=== PATIENT | male | born 1965 ===

== ENCOUNTER 2017-11-13 07:10 | Emergency (ER) | payer OTHER ==
--- OUTSIDE RECORDS SUMMARY | 2017-11-13 07:16 | XMS REPORT ---
:1965 External Reference #:[id number] Author Organization [facility] Address [address] [address] Phone [phone] Care Team Providers Name Role Phone Marcia Thornton RN MS INSURANCE ADMINISTRATIVE ASSISTANT Care Team Information Manager Product Support Unavailable Payers Type Date Identification Numbers Payment Provider Subscriber Commercial Effective: Policy Number: [id number] Wil Brandon Bassam 2014 PayID: [id number] 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, predominantly INSURANCE ADMINISTRATIVE ASSISTANT inattentive type Onset: 02/02/2011 Mixed hyperlipidemia Marcia Thornton RN MS Active INSURANCE ADMINISTRATIVE ASSISTANT Onset: 02/02/2011 Impaired fasting glycaemia Marcia Thornton RN MS Active INSURANCE ADMINISTRATIVE ASSISTANT Family History Date Family Member(s) Problem(s) Comments Father 66 Father Sleep Apnea Father COPD Father Hypercholesterolemia Father Depression doing well on zoloft and wellbutrin Mother 63 Mother Hypertension Mother Hypercholesterolemia First Brother esophageal varices First Brother barretts esophagitis Social History Type Date Description Comments Marital Status Significant Other Lives With Female Partner Smoke-Free Home is not smoke-free 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 Cigarette Use current cigarette smoker 1 pack per week ETOH Use Occasionally consumes beer Daily Caffeine Does Not Consume Caffeine Allergies, Adverse Reactions, Alerts Date Description Reaction Status Severity Comments 08/15/2006 NKDA active Medications Medication Date Status Form Strength Qnty SIG Indications Ordering Provider Bipap 11/02 Active G47.30 Marcia Rubin RN MS HEIDI Sildenafil 11/02 Active Tablets 100mg 6tabs one half F52.21 to one tab Marcia Rubin RN MS INSURANCE ADMINISTRATIVE ASSISTANT Glimepiride 11/02 Active Tablets 4mg 30tabs one tab E11.65 [place] with Marcia breakfast Caryn RN MS daily INSURANCE ADMINISTRATIVE ASSISTANT Citalopram 11/17 Active Tablets 20mg 30tabs Take F33.0 Norberto bromid One-Half Marcia Tablet By Caryn RN MS Mouth INSURANCE ADMINISTRATIVE ASSISTANT Daily For 4 Days Then Increase To One Tablet Once Daily Freestyle System 07/07 Active Kit 1units use as E11.65 Norberto directed Marcia daily to JITENDRA Rubin MS monitor INSURANCE ADMINISTRATIVE ASSISTANT blood sugar Freestyle Test 04/04 Active Strips 100units To Use E11.65 Norberto With Once Marcia Daily Caryn RN MS Glucose INSURANCE ADMINISTRATIVE ASSISTANT Monitoring DX E11. Lancets 03/31 Active Misc 100units Use as E11.65 Norberto Directed Marcia Safety For Once Caryn RN MS Daily INSURANCE ADMINISTRATIVE ASSISTANT Glucose Monitoring Atorvastatin 03/31 Active Tablets 10mg 90tabs 1 by mouth E78.2 [place] every day Marcia Rubin RN MS INSURANCE ADMINISTRATIVE ASSISTANT Omeprazole 03/31 Active Capsules 20mg 90caps take one K21.9 DR capsule by Marcia mouth JITENDRA Rubin MS every day INSURANCE ADMINISTRATIVE ASSISTANT Clotrimazole 11/25 Active Cream 1% 28.350gm apply B37.42 Ledy Anti-Fungal twice Berenice daily to MD Tania affected area Lisinopril 08/20 Active Tablets 10mg 90tabs 1 by mouth I10 every day Marcia Rubin RN MS INSURANCE ADMINISTRATIVE ASSISTANT Work Note 10/19 Hx patient Tessie.Kassandra Villafana was seen Berenice - in our MD Tania 10/22 today. Out of work 10/19 thru 10/23/2017 Azithromycin 10/19 Hx Tablets 500mg 3tabs 1 by mouth Jodi Villafana every day Berenice - MD Tania 10/26 Proair HFA 10/19 Hx Aerosol 108(90Bas 8.500gm 2 puffs J15.Kassandra Villafana e) every 6 Berenice - mcg/Act hours as MD Tania 10/19 needed wheezing/s ob Hydrocodone-Linh 10/19 Hx Syrup 5-1.5mg/5 100ml 5 J15.9 [facility], tropine ML milliliter Berenice - s every 6 MD Tania 10/24 hours needed for severe cough. avoid driving while on this medication . Ventolin HFA 10/19 Hx Aerosol 108(90Bas 1units 2 puffs J15.9 [place], e) every 4 Berenice - mcg/Act hours as MD Tania 10/26 needed Escitalopram 08/03 Hx Tablets 20mg 90tabs 1 by mouth F33.0 [place], every day Marcia Rubin RN MS 08/03 Atomoxetine HCL 08/03 Hx Capsules 40mg 30caps one tab F90.0 once daily Marcia - in am. Caryn RN MS 11/02 Return To Work 11/23 Hx Norberto, With Marciaraquel Rubin RN MS 04/20 Out Of Work 11/17 Hx for F33.0 [place] medical Marcia - reasons Caryn RN MS 04/20 for one week returning on 11/25 Gabapentin 11/17 Hx Capsules 300mg 60caps Take Two F33.0 Capsules Marcia - By Mouth Caryn RN MS 11/02 At Bedtime as Needed For Sleep Glimepiride 09/08 Hx Tablets 2mg 30tabs Take One E11.65 Tablet By Marcia - Mouth Caryn RN MS 11/02 Every Day At Breakfast Lisinopril 07/07 Hx Tablets 20mg 1 by mouth I10 every day Marcia Rubin RN MS 07/07 Glimepiride 03/31 Hx Tablets 1mg 60tabs take 1 E11.65 Norberto tablet by Marcia - mouth Caryn RN MS 09/08 daily, february increase to 2 tabs/ aim at morning sugar 120-150 Glucose 03/31 Hx for once A E11.65 Norberto, Monitoring day Marcia Orozco - glucosee JITENDRA Rubin MS 07/07 monitoring Accu-Chek 03/31 Hx Strips 100units use qd- as .65 Norberto Smart needed for Marcia - diabetes C, RN MS 04/04 testing dx INSURANCE ADMINISTRATIVE ASSISTANT e11.9, e11.65 Cyclobenzaprine 02/14 Hx Tablets 10mg 90tabs 1 every 726.19 Norberto night at Marcia - bedtime C, RN MS 09/08 and 11/01 tab every 8 hours as needed muscle spasm. Out Of Work For 02/14 Hx 02/14-. 726.19 Norberto Medical Reasons return to [facility] - full duty C, RN MS 08/20 on 02/17. INSURANCE ADMINISTRATIVE ASSISTANT Vicodin 02/14 Hx Tablets 5-300mg 20tabs 1- tab q4 726.19 Norberto hours as Marcia - needed C, RN MS 02/14 pain. Take With Food. Lidocaine 02/14 Hx Patches 5% samples apply 726.19 daily for Marcia - 12 hours C, RN MS 08/20 and remove for 12 hours Hydrocodone 02/14 Hx Tablets 5-300mg 20tabs 1 Tab Q 4 726.19 Emely Thorntonracamron/Aceta HRS prn Marcia minophen - Pain C, RN MS 02/14 INSURANCE ADMINISTRATIVE ASSISTANT Hydrocodone 02/14 Hx 5-325mg 20units 1 tab 726.19 Geovany Thornton Every 4 Marcia Acetaminophen - Hours as C, RN MS 02/14 needed - For severe pain Hydrocodone-Acet 02/14 Hx Tablets 5-325mg 20tabs 1 tab by 726.19 Norberto aminophen mouth Marcia - every 4 C, RN MS 08/20 hours INSURANCE ADMINISTRATIVE ASSISTANT needed pain BP Cuff, 11/14 Hx for weekly I10 Norberto, bp checks Marcia - dx C, RN MS 08/20 hypertensi on/diabete s Omeprazole 05/09 Hx Capsules 40mg 30caps take one K21.[address] capsule by Marcia - mouth C, RN MS 03/31 every day Ibuprofen 02/01 Hx Tablets 600mg 100tabs 1 q6 hrs 719.46 Norberto prn pain Marcia - C, RN MS 08/20 Simvastatin 06/10 Hx Tablets 40mg 90tabs 1 po qd 272.2 Marcia Rubin RN MS 08/10 Simvastatin 02/04 Hx Tablets 20mg 30tabs one tablet Norberto before bed Marcia Rubin RN MS 06/10 Ibuprofen 05/13 Hx Tablets 800mg 90tabs 1 po tid 719.46 Norberto with food Marcia Rubin RN MS 02/01 Drisdol 02/19 Hx Capsules [id number] 8caps 1 tab po q 268.9 weekly for Marcia - 8 weeks JITENDRA Rubin MS 02/02 Metformin HCL 01/12 Hx Tablets 500mg 60tabs 1tab po bid with Marcia - everette Rubin RN MS 01/02 Meloxicam 12/30 Hx Tablets 7.5mg 30tabs take 1 719.66 tablet by Marcia - tommy Rubin RN MS 09/23 every day for pain Ibuprofen 08/26 Hx Tablets 800mg 60tabs 1 po bid 719.46 Norberto Marcia Rubin RN MS 12/30 Adderall XR 01/30 Hx Caps ER 30mg 30caps one every F06.30 [facility] 24HR day february Berenice Marin MD 04/20 F90.0 Wellbutrin XL 08/15/2006 - Hx Tablets 300mg 30tabs qd 296.31 Marcia Thornton 02/19/2009 JITENDRA Rubin MS INSURANCE ADMINISTRATIVE ASSISTANT Immunizations CPT Code Status Date Vaccine Lot # [id number] Given 05/13/2010 Tdap (Adacel) Ages 7 And Above Only [id number] Given 05/08/2003 Immunization Td 7 Yrs Or Older [id number] Refused 08/03/2017 Influenza Vac, 3 Yrs & Older, Quadrivalent, Split, [place] Use [id number] Refused 04/20/2017 Influenza Vac, 3 Yrs & Older, Quadrivalent, Split, Im Use Vital Signs Date Vital Result Comment 11/02/2017 Weight 225.25 lb Heart Rate 91 /min BP Systolic 127 mmHg BP Diastolic 88 mmHg Height 68 inches 5'8" BMI (Body Mass Index) 34.2 kg/m2 10/19/2017 Body Temperature 99.5 F Weight 221.38 lb Heart Rate 108 /min BP Systolic 118 mmHg BP Diastolic 77 mmHg Height 68 inches 5'8" BMI (Body Mass Index) 33.7 kg/m2 08/03/2017 Weight 248.38 lb Heart Rate 104 /min BP Systolic 132 mmHg BP Diastolic 83 mmHg 04/20/2017 Weight 250.00 lb Heart Rate 91 /min BP Systolic 123 mmHg BP Diastolic 80 mmHg 11/17/2016 Weight 243.50 lb Heart Rate 85 /min BP Systolic 120 mmHg BP Diastolic 80 mmHg Height 68 inches 5'8" BMI (Body Mass Index) 37.0 kg/m2 09/08/2016 Weight 250.00 lb Heart Rate 99 /min BP Systolic 143 mmHg BP Diastolic 90 mmHg Height 68 inches 5'8" BMI (Body Mass Index) 38.0 kg/m2 07/07/2016 Weight 244.50 lb Heart Rate 98 /min BP Systolic 134 mmHg BP Diastolic 91 mmHg Height 68 inches 5'8" BMI (Body Mass Index) 37.2 kg/m2 03/31/2016 Weight 247.12 lb Heart Rate 96 /min BP Systolic 133 mmHg BP Diastolic 92 mmHg Height 68 inches 5'8" BMI (Body Mass Index) 37.6 kg/m2 11/25/2015 Body Temperature 98.0 F Weight 243.00 lb Heart Rate 86 /min BP Systolic 119 mmHg BP Diastolic 85 mmHg Height 68 inches 5'8" BMI (Body Mass Index) 36.9 kg/m2 11/25/2015 Weight 243.25 lb Height 68 inches 5'8" BMI (Body Mass Index) 37.0 kg/m2 08/20/2015 Weight 254.38 lb Heart Rate 97 /min BP Systolic 141 mmHg BP Diastolic 92 mmHg Height 68 inches 5'8" BMI (Body Mass Index) 38.7 kg/m2 02/14/2015 Weight 256.00 lb Heart Rate 107 /min BP Systolic 144 mmHg BP Diastolic 101 mmHg Height 68 inches 5'8" BMI (Body Mass Index) 38.9 kg/m2 11/14/2014 Weight 257.38 lb Heart Rate 86 /min BP Systolic 148 mmHg BP Diastolic 94 mmHg Height 68 inches 5'8" BMI (Body Mass Index) 39.1 kg/m2 05/09/2014 Weight 230.50 lb Heart Rate 76 /min BP Systolic 141 mmHg BP Diastolic 93 mmHg 11/07/2013 Weight 236.00 lb Heart Rate 74 /min BP Systolic 140 mmHg BP Diastolic 90 mmHg 08/10/2013 Weight 223.00 lb Heart Rate 100 /min BP Systolic 145 mmHg BP Diastolic 81 mmHg 02/01/2013 Weight 228.38 lb Heart Rate 79 /min BP Systolic 130 mmHg BP Diastolic 82 mmHg 07/06/2012 Weight 236.00 lb Heart Rate 81 /min BP Systolic 130 mmHg BP Diastolic 86 mmHg 03/02/2012 Weight 237.00 lb Heart Rate 68 /min BP Systolic 134 mmHg BP Diastolic 87 mmHg 01/03/2012 Weight 219.00 lb Heart Rate 94 /min BP Systolic 132 mmHg BP Diastolic 88 mmHg Height 68 inches 5'8" BMI (Body Mass Index) 33.3 kg/m2 11/17/2011 Weight 221.00 lb Heart Rate 74 /min BP Systolic 132 mmHg BP Diastolic 83 mmHg 10/05/2011 Weight 226.00 lb Heart Rate 89 /min BP Systolic 133 mmHg BP Diastolic 82 mmHg 02/02/2011 Weight 239.00 lb Heart Rate 79 /min BP Systolic 136 mmHg BP Diastolic 88 mmHg 09/23/2010 Weight 239.00 lb Heart Rate 67 /min BP Systolic 121 mmHg BP Diastolic 82 mmHg 05/13/2010 Weight 241.00 lb Heart Rate 76 /min BP Systolic 136 mmHg BP Diastolic 91 mmHg 02/19/2010 Weight 264.00 lb Heart Rate 77 /min BP Systolic 139 mmHg BP Diastolic 89 mmHg Respiratory Rate 20 /min 02/19/2010 Weight 246.00 lb Heart Rate 77 /min BP Systolic 139 mmHg BP Diastolic 89 mmHg Respiratory Rate 20 /min 12/30/2009 Weight 246.00 lb Heart Rate 89 /min BP Systolic 112 mmHg BP Diastolic 74 mmHg 08/26/2009 Weight 239.00 lb Heart Rate 88 /min BP Systolic 137 mmHg BP Diastolic 89 mmHg 05/22/2009 Weight 241.00 lb Heart Rate 78 /min BP Systolic 141 mmHg BP Diastolic 93 mmHg 03/20/2009 Weight 244.00 lb Heart Rate 84 /min BP Systolic 147 mmHg BP Diastolic 99 mmHg 02/19/2009 Weight 247.00 lb Heart Rate 87 /min BP Systolic 135 mmHg BP Diastolic 86 mmHg 01/30/2009 Weight 247.00 lb Heart Rate 83 /min BP Systolic 131 mmHg BP Diastolic 81 mmHg Respiratory Rate 20 /min 12/26/2007 Weight 266.00 lb Heart Rate 98 /min BP Systolic 153 mmHg BP Diastolic 88 mmHg Height 68 inches 5'8" BMI (Body Mass Index) 40.4 kg/m2 04/12/2007 Weight 258.00 lb Heart Rate 84 /min BP Systolic 120 mmHg BP Diastolic 72 mmHg Height 68 inches 5'8" BMI (Body Mass Index) 39.2 kg/m2 08/15/2006 Weight 261.00 lb Heart Rate 80 /min BP Systolic 140 mmHg BP Diastolic 88 mmHg Height 68 inches 5'8" BMI (Body Mass Index) 39.7 kg/m2 Results Test Date Test Result H/L Range Note Laboratory test finding 04/12/2017 PSA 0.350 ng/mL 0.000-4.000 1, 2 CBC With Auto Diff 04/12/2017 WBC 9.9 K/uL 4.1-11.0 1 RBC 5.29 M/uL 4.60-6.10 1 Hemoglobin 15.5 gm/dL 13.5-18.0 1 Hematocrit 46.2 % 41.0-53.0 1 MCV 87.4 fL 80.0-97.0 1 MCH 29.2 pg 27.0-32.0 1 MCHC 33.4 g/dL 32.0-36.0 1 RDW 13.4 % 11.5-14.5 1 PLT Count 346 K/ul 140-400 1 Neutrophil 71.9 % 35.0-75.0 1 Lymphocyte 14.7 % Low 16.0-52.0 1 Monocyte 10.2 % High 2.0-10.0 1 Eosinophil 2.4 % 0.0-5.0 1 Basophil 0.8 % 0.0-4.0 1 Abs Neutrophils 7.1 K/uL 2.1-8.0 1 Abs Lymphocytes 1.5 K/uL 0.8-5.5 1 Abs Monocytes 1.0 K/uL 0.1-1.0 1 Abs Eosinophils 0.2 K/uL 0.0-0.5 1 Abs Basophils 0.1 K/uL 0.0-0.3 1 Comprehensive Metabolic (CMP) 04/12/2017 Sodium 133 mmol/L Low 135-146 1 , 3 Potassium 4.9 mmol/L 3.5-5.2 1 Chloride# 100 mmol/L 97-110 1, 4 Carbon Dioxide 23 Short draw mmol/L Low 24-34 1 Glucose 279 mg/dL High 70-105 1 BUN 15 mg/dL 6-26 1 Creatinine 0.7 mg/dL 0.5-1.4 1 Calcium 9.1 mg/dL 8.5-10.2 1 Total Protein 6.7 g/dL 6.0-8.0 1 Albumin 4.0 g/dL 3.6-4.9 1 Globulin 2.7 g/dL 2.0-3.5 1 A/G Ratio 1.5 Ratio 1.0-2.2 1 Total Bilirubin 0.4 mg/dL 0.1-1.3 1 Alkaline Phosphatase 68 U/L 24-140 1 Alt 19 U/L 3-42 1 Ast 14 U/L 8-42 1 Allison Egfr >60 >60 1, 5 Non Allison Egfr >60 >60 1, 6 Anion Gap 15 mmol/L 7-16 1, 7 Hemoglobin A1c 04/12/2017 Hemoglobin A1c 12.8 % High 4.1-5.9 1 Estimated Average Glucose Calc 321 High 71-140 1 Laboratory test finding 09/14/2016 Hemoglobin A1c 13.4 % High 4.1-5.9 Comprehensive Metabolic (CMP) 09/14/2016 Sodium 128 mmol/L Low 134-142 Potassium 4.9 mmol/L 3.5-5.2 Chloride 100 mmol/L 97-109 Carbon Dioxide 26 mmol/L 24-34 Glucose 265 mg/dL High 70-105 BUN 21 mg/dL 6-26 Creatinine 0.6 mg/dL 0.5-1.4 Calcium 9.0 mg/dL 8.5-10.2 Total Protein 6.5 g/dL 6.0-8.0 Albumin 3.8 g/dL 3.6-4.9 Globulin 2.7 g/dL 2.0-3.5 A/G Ratio 1.4 Ratio 1.0-2.2 Total Bilirubin 0.3 mg/dL 0.1-1.3 Alkaline Phosphatase 54 U/L 24-140 Alt 24 U/L 3-42 Ast 14 U/L 8-42 Anion Gap 7 mmol/L 6-14 Allison Egfr >60 >60 8 Non Allison Egfr >60 >60 9 Laboratory test 09/08/2016 Microalbumin, Random 11.4 ug/ml 0.0-20.0 finding Urine Laboratory test 04/07/2016 Hemoglobin A1c 13.1 % High 4.1-5.9 finding Lipid 04/07/2016 Cholesterol 299 mg/dL High 50-199 Triglycerides 225 mg/dL High 30-200 HDL 51 mg/dL 29-71 10 Chol/ HDL Ratio 5.9 ratio 4.0-6.7 VLDL 45 mg/dL High 2-29 LDL (Calc) 203 mg/dL High 20-99 11 Comprehensive Metabolic 04/07/2016 Sodium 131 Electrolytes <SEE Low 134 -142 12 (CMP) NOTE> mmol/L Potassium 4.9 mmol/L 3.5-5.2 Chloride 97 mmol/L 97-109 Carbon Dioxide 22 mmol/L Low 24-34 Glucose 288 mg/dL High 70-105 BUN 17 mg/dL 6-26 Creatinine 0.7 mg/dL 0.5-1.4 Calcium 9.2 mg/dL 8.5-10.2 Total Protein 7.1 g/dL 6.0-8.0 Albumin 4.1 g/dL 3.6-4.9 Globulin 3.0 g/dL 2.0-3.5 A/G Ratio 1.4 Ratio 1.0-2.2 Total Bilirubin 0.5 mg/dL 0.1-1.3 Alkaline Phosphatase 65 U/L 24-140 Alt 28 U/L 3-42 Ast 18 U/L 8-42 Anion Gap 17 mmol/L High 6-14 Allison Egfr >60 >60 13 Non Allison Egfr >60 >60 14 Laboratory test finding 04/07/2016 PSA 0.310 ng/mL 0.000-4.000 15 Laboratory test finding 08/20/2015 Hemoglobin A1c 13.5 % High 4.1-5.9 Comprehensive Metabolic 08/20/2015 Sodium 131 Results veri Low 134-142 16 (CMP) <SEE NOTE> mmol/L Potassium 4.5 mmol/L 3.5-5.2 Chloride 100 mmol/L 97-109 Carbon Dioxide 24 mmol/L 24-34 Glucose 283 mg/dL High 70-105 BUN 17 mg/dL 6-26 Creatinine 0.7 mg/dL 0.5-1.4 Calcium 9.3 mg/dL 8.5-10.2 Total Protein 7.3 g/dL 6.0-8.0 Albumin 4.4 g/dL 3.6-4.9 Globulin 2.9 g/dL 2.0-3.5 A/G Ratio 1.5 Ratio 1.0-2.2 Total Bilirubin 0.5 mg/dL 0.1-1.3 Alkaline Phosphatase 68 U/L 24-140 Alt 40 U/L 3-42 Ast 19 U/L 8-42 Anion Gap 12 mmol/L 6-14 Allison Egfr >60 >60 17 Non Allison Egfr >60 >60 18 Lipid 08/20/2015 Cholesterol 313 mg/dL High 50-199 Triglycerides 231 mg/dL High 30-200 HDL 47 mg/dL - 19 Chol/ HDL Ratio 6.7 ratio 4.0-6.7 VLDL 46 mg/dL High 2-29 LDL (Calc) 220 mg/dL High 20-99 20 Comprehensive Metabolic 12/17/2014 Sodium 133 Consistent w Low 134-142 21 , 22 (CMP) <SEE NOTE> mmol/L Potassium 4.8 mmol/L 3.5-5.2 21 Chloride 100 mmol/L 97-109 21 Carbon Dioxide 22 mmol/L Low 24-34 21 Glucose 236 mg/dL High 70-105 21 BUN 22 mg/dL 6-26 21 Creatinine 0.7 mg/dL 0.5-1.4 21 Calcium 9.5 mg/dL 8.5-10.2 21 Total Protein 7.3 g/dL 6.0-8.0 21 Albumin 4.4 g/dL 3.6-4.9 21 Globulin 2.9 g/dL 2.0-3.5 21 A/G Ratio 1.5 Ratio 1.0-2.2 21 Total Bilirubin 0.5 mg/dL 0.1-1.3 21 Alkaline Phosphatase 54 U/L 24-140 21 Alt 34 U/L 3-42 21 Ast 21 U/L 8-42 21 Anion Gap 16 mmol/L High 6- 21 Allison Egfr >60 >60 21, 23 Non Allison Egfr >60 >60 21, 24 Laboratory test finding 12/17/2014 Hemoglobin A1c 9.2 % High 4.1-5.9 21 Lipid 12/17/2014 Cholesterol 269 mg/dL High 50-199 21 Triglycerides 150 mg/dL 30-200 21 HDL 54 mg/dL 29-71 21, 25 Chol/ HDL Ratio 5.0 ratio 4.0-6.7 21 VLDL 30 mg/dL High 2- 21 LDL (Calc) 185 mg/dL High 20-99 21, 26 Laboratory test finding 05/21/2014 Lipase 37 U/L 11-82 27 Hemoglobin A1c 6.6 % High 4.1-5.9 27 Comprehensive Metabolic 05/21/2014 Sodium 133 Electrolytes Low 134-142 27 , 28 (CMP) <SEE NOTE> mmol/L Potassium 5.0 mmol/L 3.5-5.2 27 Chloride 106 mmol/L 97-109 27 Carbon Dioxide 21 mmol/L Low 24-34 27 Glucose 104 mg/dL 70-105 27 BUN 15 mg/dL 6-26 27 Creatinine 0.8 mg/dL 0.5-1.4 27 Calcium 8.9 mg/dL 8.5-10.2 27 Total Protein 6.8 g/dL 6.0-8.0 27 Albumin 3.9 g/dL 3.6-4.9 27 Globulin 2.9 g/dL 2.0-3.5 27 A/G Ratio 1.3 Ratio 1.0-2.2 27 Total Bilirubin 0.3 mg/dL 0.1-1.3 27 Alkaline Phosphatase 48 U/L 24-140 27 Alt 18 U/L 3-42 27 Ast 15 U/L 8-42 27 Anion Gap 11 mmol/L 6-14 27 Allison Egfr >60 >60 27, 29 Non Allison Egfr >60 >60 27, 30 Lipid 05/21/2014 Cholesterol 182 mg/dL 50-199 27 Triglycerides 112 mg/dL 30-200 27 HDL 44 mg/dL 27, 31 Chol/ HDL Ratio 4.1 ratio 4.0-6.7 27 VLDL 22 mg/dL 2- 27 LDL (Calc) 116 mg/dL High 20-99 27, 32 Laboratory test 05/21/2014 H Pylori AB Igg <0.40 U/mL (<0.90) 27, 33 finding Lipid 11/07/2013 Cholesterol 259 mg/dL High 50-199 34 Triglycerides 155 mg/dL 30-200 34 HDL 49 mg/dL 34, 35 Chol/ HDL Ratio 5.3 ratio 4.0-6.7 34 VLDL 31 mg/dL High 2-29 34 LDL (Calc) 179 mg/dL High 20-99 34, 36 Laboratory test 11/07/2013 Hemoglobin A1c 7.0 % High 4.1-5.9 34 finding Basic (BMP) 11/07/2013 Sodium 131 Results veri Low 134-142 34, 37 <SEE NOTE> mmol/L Potassium 5.1 mmol/L 3.5-5.2 34 Chloride 102 mmol/L 97-109 34 Carbon Dioxide 23 mmol/L Low 24-34 34 Glucose 125 mg/dL High 70-105 34 BUN 17 mg/dL 6-26 34 Creatinine 0.8 mg/dL 0.5-1.4 34 Calcium 9.1 mg/dL 8.5-10.2 34 Anion Gap 11 mmol/L 6-14 34 Non Allison Egfr >60 >60 34, 38 Allison Egfr >60 >60 34, 39 Laboratory test finding 08/21/2013 Hemoglobin A1c 6.6 % High 4.1-5.9 40 Comprehensive Metabolic (CMP) 08/21/2013 Sodium 134 mmol/L 134-142 40 Potassium 4.4 mmol/L 3.5-5.2 40 Chloride 105 mmol/L 97-109 40 Carbon Dioxide 24 mmol/L 24-34 40 Glucose 106 mg/dL High 70-105 40 BUN 21 mg/dL 6-26 40 Creatinine 0.8 mg/dL 0.5-1.4 40 Calcium 9.3 mg/dL 8.5-10.2 40 Total Protein 6.7 g/dL 6.0-8.0 40 Albumin 4.3 g/dL 3.6-4.9 40 Globulin 2.4 g/dL 2.0-3.5 40 A/G Ratio 1.8 Ratio 1.0-2.2 40 Total Bilirubin 0.4 mg/dL 0.1-1.3 40 Alkaline Phosphatase 45 U/L 24-140 40 Alt 23 U/L 3-42 40 Ast 15 U/L 8-42 40 Anion Gap 9 mmol/L 6-14 40 Allison Egfr >60 >60 40, 41 Non Allison Egfr >60 >60 40, 42 Lipid 08/21/2013 Cholesterol 188 mg/dL 50-199 40 Triglycerides 96 mg/dL 30-200 40 HDL 38 mg/dL 29-71 40, 43 Chol/ HDL Ratio 4.9 ratio 4.0-6.7 40 VLDL 19 mg/dL 2-29 40 LDL (Calc) 131 mg/dL High 20-99 40, 44 Lipid 07/06/2012 Cholesterol 206 mg/dL High 50-199 45 Triglycerides 127 mg/dL 30-200 45 HDL 38 mg/dL 29-71 45, 46 Chol/ HDL Ratio 5.4 ratio 4.0-6.7 45 VLDL 25 mg/dL 2-29 45 LDL (Calc) 143 mg/dL High 20-129 45, 47 Basic (BMP) 07/06/2012 Sodium 131 Results veri <SEE NOTE> Low 134- 142 45, 48 mmol/L Potassium 4.8 mmol/L 3.5-5.2 45 Chloride 104 mmol/L 97-109 45 Carbon Dioxide 23 mmol/L Low 24-34 45 Glucose 102 mg/dL 70-105 45 BUN 19 mg/dL 6-26 45 Creatinine 0.7 mg/dL 0.5-1.4 45 Calcium 9.0 mg/dL 8.5-10.2 45 Anion Gap 9 mmol/L 6-14 45 Non Allison Egfr >60 >60 45, 49 Allison Egfr >60 >60 45, 50 Laboratory test finding 07/06/2012 Hemoglobin A1c 6.7 % High 4.1-5.9 45 Lipid 03/02/2012 Cholesterol @ 222 mg/dL High (0-200) 45 Triglyceride @ 221 mg/dL High (30-200) 45 HDL Cholesterol @ 39 mg/dL Low (>40) 45, 51 Chol/HDL Ratio 5.7 RATIO 45, 52 LDL Chol (Calc) 139 mg/dL High (<130) 45, 53 Hemoglobin A1c 03/02/2012 Hemoglobin A1c @ 6.4 % High (4.0-6.0) 45 Est Average Glucose 137 mg/dL 45, 54 Comprehensive Metabolic (CMP) 03/02/2012 Sodium 137 mmol/L (136-145) 45 Potassium 5.2 mmol/L (3.6-5.2) 45 Chloride 105 mmol/L (100-108) 45 Co2 24 mmol/L (22-31) 45 Anion Gap 8 mmol/L (7-16) 45 Urea Nitrogen 18 mg/dL (7-24) 45 Creatinine 0.8 mg/dL (0.8-1.3) 45 BUN/Creat Ratio 22.5 RATIO High (10.0-20.0) 45 Glucose 91 mg/dL (70-99) 45 Calcium 8.8 mg/dL (8.4-10.2) 45 Total Protein 7.3 g/dL (6.4-8.2) 45 Albumin 3.7 g/dL (3.5-4.6) 45 Globulin 3.6 g/dL (2.7-4.3) 45 Alb/Glob Ratio 1.0 RATIO 45 Alkaline Phosphatase 53 U/L (50-136) 45 Bilirubin,Total 0.3 mg/dL (0.0-1.0) 45 Ast (Sgot) 29 U/L (11-39) 45 Alt (SGPT) 57 U/L (25-69) 45 GFR >90 ML/MIN/1.73M2 (>59) 45 GFR ( Amer) >90 ML/MIN/1.73M2 (>59) 45 GFR Interpretation (SEE NOTE) 45, 55 Lipid 11/17/2011 Cholesterol @ 211 mg/dL High (0-200) 45 Triglyceride @ 92 mg/dL (30-200) 45 HDL Cholesterol @ 43 mg/dL (>40) 45, 56 Chol/HDL Ratio 4.9 RATIO 45, 57 LDL Chol (Calc) 150 mg/dL High (<130) 45, 58 Hemoglobin A1c 11/17/2011 Hemoglobin A1c @ 6.3 % High (4.0-6.0) 45 Est Average Glucose 134 mg/dL 45, 59 Comprehensive Metabolic (CMP) 11/17/2011 Sodium 136 mmol/L (136-145) 45 Potassium 5.2 mmol/L (3.6-5.2) 45 Chloride 103 mmol/L (100-108) 45 Co2 26 mmol/L (22-31) 45 Anion Gap 7 mmol/L (7-16) 45 Urea Nitrogen 13 mg/dL (7-24) 45 Creatinine 1.0 mg/dL (0.8-1.3) 45 BUN/Creat Ratio 13.0 RATIO (10.0-20.0) 45 Glucose 107 mg/dL High (70-99) 45 Calcium 8.7 mg/dL (8.4-10.2) 45 Total Protein 7.7 g/dL (6.4-8.2) 45 Albumin 3.9 g/dL (3.5-4.6) 45 Globulin 3.8 g/dL (2.7-4.3) 45 Alb/Glob Ratio 1.0 RATIO 45 Alkaline Phosphatase 53 U/L (50-136) 45 Bilirubin,Total 0.4 mg/dL (0.0-1.0) 45 Ast (Sgot) 13 U/L (11-39) 45 Alt (SGPT) 26 U/L (25-69) 45 GFR 86 ML/MIN/1.73M2 (>59) 45 GFR ( Amer) >90 ML/MIN/1.73M2 (>59) 45 GFR Interpretation (SEE NOTE) 45, 60 Microalbumin, Random Urine 11/17/2011 Albumin, Urine 0.57 mg/dL 45 Creatinine,Urine 92.0 mg/dL 45 Alb/Creatinine Ratio 6.2 MCG/MG (0.0-29.9) 45, 61 Lipid Treatment 08/26/2011 Rejected Test Reason Cancelled 62 Laboratory test finding 08/26/2011 Alt 31 U/L (25-69) 62, 63 Ast 9 U/L Low (11-39) 62, 64 Lipid 08/26/2011 Cholesterol @ 194 mg/dL (0-200) 62 Triglyceride @ 101 mg/dL (30-200) 62 HDL Cholesterol @ 42 mg/dL (>40) 62, 65 Chol/HDL Ratio 4.6 RATIO 62, 66 LDL Chol (Calc) 132 mg/dL High (<130) 62, 67 Comprehensive Metabolic (CMP) 06/08/2011 Sodium 134 mmol/L Low (136-145) 62 Potassium 5.2 mmol/L (3.6-5.2) 62 Chloride 102 mmol/L (100-108) 62 Co2 21 mmol/L Low (22-31) 62 Anion Gap 11 mmol/L (7-16) 62 Urea Nitrogen 12 mg/dL (7-24) 62 Creatinine 0.9 mg/dL (0.8-1.3) 62 BUN/Creat Ratio 13.3 RATIO (10.0-20.0) 62 Glucose 100 mg/dL High (70-99) 62 Calcium 8.8 mg/dL (8.4-10.2) 62 Total Protein 7.5 g/dL (6.4-8.2) 62 Albumin 4.3 g/dL (3.5-4.6) 62 Globulin 3.2 g/dL (2.7-4.3) 62 Alb/Glob Ratio 1.3 RATIO 62 Alkaline Phosphatase 50 U/L (50-136) 62 Bilirubin,Total 0.5 mg/dL (0.0-1.0) 62 Ast (Sgot) 10 U/L Low (11-39) 62 Alt (SGPT) 25 U/L (25-69) 62 GFR >90 ML/MIN/1.73M2 (>59) 62 GFR ( Amer) >90 ML/MIN/1.73M2 (>59) 62 GFR Interpretation (SEE NOTE) 62, 68 CBC With Auto Diff 06/08/2011 WBC 8.9 K/UL (4.1-11.0) 62 RBC 5.03 M/UL (4.60-6.10) 62 HGB 15.5 GM/DL (13.5-18.0) 62 HCT 45.7 % (41.0-53.0) 62 MCV 90.8 FL (80.0-95.0) 62 MCH 30.9 pg (27.0-32.0) 62 MCHC 34.0 g/dL (32.0-36.0) 62 RDW 14.7 % High (10.5-14.5) 62 PLT 341 K/UL (150-400) 62 MPV 7.6 FL (7.1-10.7) 62 Neut % 65.7 % (35.0-75.0) 62 Lymph % 21.0 % (16.0-52.0) 62 [place] % 9.6 % High (0-8.0) 62 Eos % 3.2 % (0-5.0) 62 Baso % 0.5 % (0-4.0) 62 Neut # 5.9 K/UL (1.8-7.7) 62 Lymph # 1.9 K/UL (1.2-4.8) 62 [place] # 0.9 K/UL High (0-0.8) 62 Eos # 0.3 K/UL (0-0.5) 62 Baso # 0.0 K/UL (0-0.2) 62, 69 Hemoglobin A1c 06/08/2011 Hemoglobin A1c @ 6.5 % High (4.0-6.0) 62 Est Average Glucose 140 mg/dL 62, 70 Lipid 06/08/2011 Cholesterol @ 240 mg/dL High (0-200) 62 Triglyceride @ 109 mg/dL (30-200) 62 HDL Cholesterol @ 44 mg/dL (>40) 62, 71 Chol/HDL Ratio 5.5 RATIO 62, 72 LDL Chol (Calc) 174 mg/dL High (<130) 62, 73 Hemoglobin A1c 02/02/2011 Hemoglobin A1c @ 6.9 % High (4.0-6.0) 74 Est Average Glucose 151 mg/dL 74, 75 Lipid Treatment 02/02/2011 Rejected Test Reason Cancelled 74 Basic (BMP) 02/02/2011 Sodium 137 mmol/L (136-145) 74 Potassium 5.0 mmol/L (3.6-5.2) 74 Chloride 104 mmol/L (100-108) 74 Co2 21 mmol/L Low (22-31) 74 Anion Gap 12 mmol/L (7-16) 74 Urea Nitrogen 14 mg/dL (7-24) 74 Creatinine 0.8 mg/dL (0.8-1.3) 74 BUN/Creat Ratio 17.5 RATIO (10.0-20.0) 74 Glucose 112 mg/dL High (70-99) 74 Calcium 9.0 mg/dL (8.4-10.2) 74 GFR >90 ML/MIN/1.73M2 (>59) 74 GFR ( Amer) >90 ML/MIN/1.73M2 (>59) 74 GFR Interpretation (SEE NOTE) 74, 76 Laboratory test finding 02/02/2011 Alt 29 U/L (25-69) 74, 77 Ast 6 U/L Low (11-39) 74, 78 Lipid 02/02/2011 Cholesterol @ 239 mg/dL High (0-200) 74 Triglyceride @ 151 mg/dL (30-200) 74 HDL Cholesterol @ 42 mg/dL (>40) 74, 79 Chol/HDL Ratio 5.7 RATIO 74, 80 LDL Chol (Calc) 167 mg/dL High (<130) 74, 81 Hemoglobin A1c 09/23/2010 Hemoglobin A1c - [place] 6.5 % High 4.0-6.0 82 Est Average Glucose 140 mg/dL 82, 83 Lipid Panel 09/23/2010 Cholesterol - LA 215 mg/dL High 0-200 82 Triglyceride-LA 99 mg/dL 30-200 82 HDL Cholesterol - [place] 35 mg/dL (>40) 82, 84 Cholesterol/HDL Ratio-LA 6.1 RATIO 82, 85 LDL Cholesterol-LA 160 mg/dL High 0-129.999 82, 86 CMP 09/23/2010 Sodium-Na 138 mmol/L 136-145 82 Potassium-LA 4.9 mmol/L 3.6-5.2 82 Chloride - [place] 105 mmol/L 100-108 82 Co2 (Carbon Dioxide) - LA 23 mmol/L 22-31 82 Glucose - LA 102 mg/dL (70-110) 82 Calcium - LA 8.9 mg/dL 8.4-10.2 82 Urea Nitrogen (BUN) - LA 13 mg/dL 7-24 82 Creatinine, Serum 0.9 mg/dL 0.8-1.3 82 BUN/Creat Ratio - LA 14.4 RATIO 10.0-20.0 82 Anion Gap - LA 10 mmol/L 7-16 82 Total Protein - LA 7.1 g/dL 6.4-8.2 82 Albumin - LA 3.7 mg/dL 3.5-4.6 82 Alt (SGPT) Liver Enzyme -LA 31 U/L 25-69 82 Ast (Sgot) Liver Enzyme - LA 14 U/L 11-39 82 Bilirubin, Total - LA 0.3 mg/dL 0.0-1.0 82 Alkaline Phosphatase - LA 49 U/L (50-136) 82 Globulin - LA 3.4 g/dL 2.7-4.3 82 Albumin Globulin Ratio-LA 1.1 RATIO 82 GFR - LA >90 ML/MIN/1.73M2 (>59) 82 GFR () - LA >90 ML/MIN/1.73M2 (>59) 82 GFR Calculation - LA (SEE NOTE) 82, 87 Laboratory test finding 09/23/2010 Vitamin D 25 Hydroxy - 26 ng/mL -65 82, 88 LA Hemoglobin A1c 05/13/2010 Hemoglobin A1c - LA 6.7 % High 4.0-6.0 89 Est Average Glucose 146 mg/dL 89, 90 Basic (BMP) 05/13/2010 Sodium-Na 133 mmol/L (136-145) 89 Potassium-LA 5.2 mmol/L 3.6-5.2 89 Chloride - LA 104 mmol/L 100-108 89 Co2 (Carbon Dioxide) - LA 22 mmol/L 22-31 89 Glucose - LA 133 mg/dL (70-110) 89 Calcium - LA 9.5 mg/dL 8.4-10.2 89 Urea Nitrogen (BUN) - LA 17 mg/dL 7-24 89 Creatinine, Serum 0.9 mg/dL 0.8-1.3 89 BUN/Creat Ratio - LA 18.9 RATIO 10.0-20.0 89 Anion Gap - LA 7 mmol/L 7-16 89 GFR - LA >90 ML/MIN/1.73M2 (>59) 89 GFR () - LA >90 ML/MIN/1.73M2 (>59) 89 GFR Calculation - LA (SEE NOTE) 89, 91 Laboratory test finding 05/13/2010 Vitamin D 25 Hydroxy - 26 ng/mL 10-65 89, 92 LA Hemoglobin A1c 01/08/2010 Hemoglobin A1c - LA 7.0 % High 4.1-6.5 93 Est Average Glucose 154 mg/dL 93, 94 Lipid [place] Panel 01/08/2010 Ast (Sgot) Liver Enzyme - LA 18 U/L 11-39 93, 95 Alt (SGPT) Liver Enzyme -LA 39 U/L 25-69 93, 96 Cholesterol DELETED mg/dL 50-199 93 Triglycerides DELETED mg/dL 10-150 93 HDL DELETED mg/dL 29-71 93, 97 LDL (Calc) DELETED mg/dL 20-129 93, 98 Chol/HDL Ratio DELETED Ratio 4.0-6.7 93, 99 VLDL DELETED mg/dL 2-29 93 CBC With Auto Diff 01/08/2010 WBC-LA 9.9 K/UL 4.1-11.0 93 RBC -LA 4.69 M/UL 4.60-6.10 93 Hemoglobin - LA 14.4 GM/DL 13.5-18.0 93 Hematocrit - LA 42.2 % 41.0-53.0 93 MCV -LA 90.0 FL 80.0-95.0 93 MCH -LA 30.7 pg 27.0-32.0 93 MCHC -LA 34.2 g/dL 32.0-36.0 93 RDW -LA 13.8 % 10.5-14.5 93 Platelet Count 388 K/ul 150-400 93 MPV -LA 6.9 FL (7.1-10.7) 93 Dtype -LA N/A 93 Neutrophil % -LA 62.7 % 35.0-75.0 93 Lymphocytes % -LA 20.5 % 16.0-52.0 93 Monocytes % -LA 11.4 % High 0-8.0 93 Eosinophils % -LA 5.0 % 0-5.0 93 Basophils % -LA 0.4 % 0-4.0 93 Absoulte Neutrophils -LA 6.2 K/UL 1.8-7.7 93 Absolute Lymphocytes -LA 2.0 K/UL 1.2-4.8 93 Absolute Monocytes -LA 1.1 K/UL High 0-0.8 93 Absolute Eosinophils -LA 0.5 K/UL 0-0.5 93 Absolute Basophils -LA 0.0 K/UL 0-0.2 93, 100 Basic (BMP) 01/08/2010 Sodium-Na 138 mmol/L 136-145 93 Potassium-LA 5.1 mmol/L 3.6-5.2 93 Chloride - LA 103 mmol/L 100-108 93 Co2 (Carbon Dioxide) - LA 20 mmol/L (22-31) 93 Glucose - LA 137 mg/dL High 70-99 93 Calcium - LA 8.8 mg/dL 8.4-10.2 93 Urea Nitrogen (BUN) - LA 18 mg/dL 7-24 93 Creatinine, Serum 0.9 mg/dL 0.8-1.3 93 BUN/Creat Ratio - LA 20.0 RATIO 10.0-20.0 93 Anion Gap - LA 15 mmol/L 7-16 93 GFR - LA >90 ML/MIN/1.73M2 (>59) 93 GFR () - LA >90 ML/MIN/1.73M2 (>59) 93 GFR Calculation - LA (SEE NOTE) 93, 101 Lipid Panel 01/08/2010 Cholesterol - LA 221 mg/dL (0-200) 93 Triglyceride-LA 203 mg/dL (30-200) 93, 102 HDL Cholesterol - LA 38 mg/dL (>40) 93, 103 Cholesterol/HDL Ratio-LA 5.8 RATIO 93, 104 LDL Cholesterol-LA 142 mg/dL High 0-129.999 93, 105 Laboratory test finding 01/08/2010 Vitamin D 25 Hydroxy 22 ng/mL Low 31- 100 93, 106 - LA Lipid [place] Panel 05/22/2009 Ast (Sgot) Liver 16 U/L 11-39 107, 108 Enzyme - LA Alt (SGPT) Liver Enzyme -LA 31 U/L 25-69 107, 109 Cholesterol DELETED mg/dL 50-199 107 Triglycerides DELETED mg/dL 10-150 107 HDL DELETED mg/dL 29-71 107, 110 LDL (Calc) DELETED mg/dL 20-129 107, 111 Chol/HDL Ratio DELETED Ratio 4.0-6.7 107, 112 VLDL DELETED mg/dL 2-29 107 Basic (BMP) 05/22/2009 Sodium-Na 139 mmol/L 136-145 107 Potassium-LA 4.4 mmol/L 3.6-5.2 107 Chloride - LA 105 mmol/L 100-108 107 Co2 (Carbon Dioxide) - LA 24 mmol/L 22-31 107 Glucose - LA 131 mg/dL (70-110) 107, 113 Calcium - LA 8.9 mg/dL 8.4-10.2 107 Urea Nitrogen (BUN) - LA 13 mg/dL 7-24 107 Creatinine, Serum 0.8 mg/dL 0.8-1.3 107 BUN/Creat Ratio - LA 16.3 RATIO 10.0-20.0 107 Anion Gap - LA 10 mmol/L 7-16 107 GFR - LA >90 ML/MIN/1.73M2 (>59) 107 GFR () - LA >90 ML/MIN/1.73M2 (>59) 107 GFR Calculation - LA (SEE NOTE) 107, 114 Lipid Panel 05/22/2009 Cholesterol - LA 198 mg/dL 0-200 107 Triglyceride-LA 243 mg/dL High 30-200 107, 115 HDL Cholesterol - LA 33 mg/dL (>40) 107, 116 Cholesterol/HDL Ratio-LA 6.0 RATIO 107, 117 LDL Cholesterol-LA 116 mg/dL 0-129.999 107, 118 Laboratory test finding 02/06/2009 Ast (Sgot) Liver Enzyme - LA 18 U/L 11 -39 119 Alt (SGPT) Liver Enzyme -LA 26 U/L 25-69 120 Lipid Panel 02/06/2009 Cholesterol - LA 211 mg/dL (0-200) 121 Triglyceride-LA 164 mg/dL 30-200 HDL Cholesterol - [place] 38 mg/dL (>40) 122 Cholesterol/HDL Ratio-LA 5.6 RATIO 123 LDL Cholesterol-LA 140 mg/dL (<130) 124 Lipid [place] Panel 12/26/2007 Ast (Sgot) Liver Enzyme - [place] 22 U/L 11-39 125 Alt (SGPT) Liver Enzyme -LA 54 U/L 25-69 125 Cholesterol DELETED mg/dL 50-199 125 Triglycerides DELETED mg/dL 10-150 125 HDL DELETED mg/dL 29-71 125 LDL (Calc) DELETED mg/dL 20-129 125 Chol/HDL Ratio DELETED Ratio 125 VLDL DELETED mg/dL 125 Basic (BMP) 12/26/2007 Sodium-Na 139 mmol/L 136-145 125 Potassium-LA 4.2 mmol/L 3.6-5.2 125 Chloride - LA 99 mmol/L (100-108) 125 Co2 (Carbon Dioxide) - LA 26 mmol/L 22-31 125 Glucose - LA 104 mg/dL (70-110) 125 Calcium - LA 9.7 mg/dL 8.4-10.2 125 Urea Nitrogen (BUN) - LA 21 mg/dL 7-24 125 Creatinine, Serum 1.0 mg/dL 0.8-1.3 125 BUN/Creat Ratio - LA 21.0 RATIO (10.0-20.0) 125 Anion Gap - LA 14 mmol/L 7-16 125 GFR - LA 88 ML/MIN/1. 59.001-9999 125 GFR () - LA >90 ML/MIN/1. (>59) 125 Lipid Panel 12/26/2007 Cholesterol - LA 277 mg/dL High 0-200 125 Triglyceride-LA 274 mg/dL High 30-200 125 HDL Cholesterol - [place] 40 mg/dL (>40) 125 Cholesterol/HDL Ratio-LA 6.9 RATIO 125 Laboratory test 12/26/2007 Direct LDL 196 mg/dL High 20-129 125 finding Laboratory test 04/12/2007 TSH, 2.310 mIU/mL 0.340-5.600 126 finding Ultrasensitive-LA Basic (BMP) 04/12/2007 Sodium-Na 134 mmol/L (136-145) 126 Potassium-LA 4.7 mmol/L 3.6-5.2 126 Chloride - LA 102 mmol/L 100-108 126 Co2 (Carbon Dioxide) - LA 23 mmol/L 22-31 126 Glucose - LA 106 mg/dL (70-110) 126 Calcium - LA 9.1 mg/dL 8.4-10.2 126 Urea Nitrogen (BUN) - LA 22 mg/dL 7-24 126 Creatinine, Serum 0.9 mg/dL 0.8-1.3 126 BUN/Creat Ratio - LA 24.4 RATIO (10.0-20.0) 126 Anion Gap - LA 9 mmol/L 7-16 126 GFR - LA >90 ML/MIN/1.7 (>59) 126 GFR () - LA >90 ML/MIN/1.7 (>59) 126 Lipid Panel 04/12/2007 Cholesterol - LA 238 mg/dL High 0-200 126 Triglyceride-LA 223 mg/dL High 30-200 126 HDL 40 mg/dL Low 40.001-9999 126, 127 Cholesterol/HDL Ratio-LA 6.0 RATIO 126, 128 LDL Cholesterol-LA 153 mg/dL High 0-129.999 126, 129 CBC With Auto Diff 04/12/2007 WBC-LA 13.3 K/UL High 4.1-11.0 126 RBC -LA 4.89 M/UL 4.60-6.10 126 Hemoglobin - LA 14.7 GM/DL 13.5-18.0 126 Hematocrit - LA 42.7 % 41.0-53.0 126 MCV -LA 87.2 FL 80.0-95.0 126 MCH -LA 30.1 pg 27.0-32.0 126 MCHC -LA 34.5 g/dL 32.0-36.0 126 RDW -LA 14.3 % 10.5-14.5 126 Platelet Count-LA 390 K/UL 150-400 126 MPV -LA 7.5 FL 7.1-10.7 126 Dtype -LA AUTOMATED DIFFER <SEE NOTE> 126, 130 Neutrophil % -LA 75.5 % High 35.0-75.0 126 Lymphocytes % -LA 15.4 % Low 16.0-52.0 126 Monocytes % -LA 7.3 % 0-8.0 126 Eosinophils % -LA 1.6 % 0-5.0 126 Basophils % -LA 0.2 % 0-4.0 126 Absoulte Neutrophils -LA 10.0 K/UL (1.8-7.7) 126 Absolute Lymphocytes -LA 2.0 K/UL 1.2-4.8 126 Absolute Monocytes -LA 1.0 K/UL (0-0.8) 126 Absolute Eosinophils -LA 0.2 K/UL 0-0.5 126 Absolute Basophils -LA 0.0 K/UL 0-0.2 126 1 This sample is drawn by: 2 Beginning 12/26/06 PSA values assayed at [facility] uses chemiluminescence methodology manufactured by [employer] for use on the DXI analyzer. Values obtained with different assay methods or kits can not be used interchangeably. Serum PSA measurement is not an absolute test for malignancy. The PSA value should be used in conjunction with information available from clinical evaluation and other diagnostic procedures. 3 Updated reference range on new analyzer 4 Updated reference range on new analyzer 5 Concerning GFR Guidelines for Americans: Normal function or mild renal disease, if clinically at risk: >/=60 mL/min Moderately decreased: 30-59 Severely decreased: 15-29 Renal failure: <15 6 Concerning GFR Guidelines: Normal function or mild renal disease, if clinically at risk: >/=60 mL/min Moderately decreased: 30-59 Severely decreased: 15-29 Renal failure: <15 Glomerular Filtration Rate (GFR) is estimated based on the MDRD equation, which assumes a steady state for creatinine as recommended by the National Kidney Disease Education Program in conjunction with the National Institutes of Health and the National Kidney Foundation. Clinical conditions in which it may be necessary to measure GFR by using clearance methods include extremes of age and body size, severe malnutrition or obesity, diseases of skeletal muscle, paraplegia or quadriplegia, vegetarian diet, rapidly changing kidney function, and calculation of the dose of potentially toxic drugs that are excreted by the kidneys. 7 Updated reference range on new analyzer 8 Concerning GFR Guidelines for Americans: Normal function or mild renal disease, if clinically at risk: >/=60 mL/min Moderately decreased: 30-59 Severely decreased: 15-29 Renal failure: <15 9 Concerning GFR Guidelines: Normal function or mild renal disease, if clinically at risk: >/=60 mL/min Moderately decreased: 30-59 Severely decreased: 15-29 Renal failure: <15 Glomerular Filtration Rate (GFR) is estimated based on the MDRD equation, which assumes a steady state for creatinine as recommended by the National Kidney Disease Education Program in conjunction with the National Institutes of Health and the National Kidney Foundation. Clinical conditions in which it may be necessary to measure GFR by using clearance methods include extremes of age and body size, severe malnutrition or obesity, diseases of skeletal muscle, paraplegia or quadriplegia, vegetarian diet, rapidly changing kidney function, and calculation of the dose of potentially toxic drugs that are excreted by the kidneys. 10 Per NCEP ATP III Guidelines: Results lower than 40 mg/dL are suggestive of increased risk for coronary artery disease. Results > or=to 60 mg/dL are considered a negative risk factor. 11 Per NCEP ATP III Guidelines: Normal Population <130 Patients with medical conditions: CHD/DM Optimal: <100 Borderline high: 130-159 High: 160-189 Very high: >189 12 131 Electrolytes confirmed by repeat. 13 Concerning GFR Guidelines for Americans: Normal function or mild renal disease, if clinically at risk: >/=60 mL/min Moderately decreased: 30-59 Severely decreased: 15-29 Renal failure: <15 14 Concerning GFR Guidelines: Normal function or mild renal disease, if clinically at risk: >/=60 mL/min Moderately decreased: 30-59 Severely decreased: 15-29 Renal failure: <15 Glomerular Filtration Rate (GFR) is estimated based on the MDRD equation, which assumes a steady state for creatinine as recommended by the National Kidney Disease Education Program in conjunction with the National Institutes of Health and the National Kidney Foundation. Clinical conditions in which it may be necessary to measure GFR by using clearance methods include extremes of age and body size, severe malnutrition or obesity, diseases of skeletal muscle, paraplegia or quadriplegia, vegetarian diet, rapidly changing kidney function, and calculation of the dose of potentially toxic drugs that are excreted by the kidneys. 15 Beginning 12/26/06 PSA values assayed at [facility] uses chemiluminescence methodology manufactured by [employer] for use on the DXI analyzer. Values obtained with different assay methods or kits can not be used interchangeably. Serum PSA measurement is not an absolute test for malignancy. The PSA value should be used in conjunction with information available from clinical evaluation and other diagnostic procedures. 16 131 Results verified by repeat analysis 17 Concerning GFR Guidelines for Americans: Normal function or mild renal disease, if clinically at risk: >/=60 mL/min Moderately decreased: 30-59 Severely decreased: 15-29 Renal failure: <15 18 Concerning GFR Guidelines: Normal function or mild renal disease, if clinically at risk: >/=60 mL/min Moderately decreased: 30-59 Severely decreased: 15-29 Renal failure: <15 Glomerular Filtration Rate (GFR) is estimated based on the MDRD equation, which assumes a steady state for creatinine as recommended by the National Kidney Disease Education Program in conjunction with the National Institutes of Health and the National Kidney Foundation. Clinical conditions in which it may be necessary to measure GFR by using clearance methods include extremes of age and body size, severe malnutrition or obesity, diseases of skeletal muscle, paraplegia or quadriplegia, vegetarian diet, rapidly changing kidney function, and calculation of the dose of potentially toxic drugs that are excreted by the kidneys. 19 Per NCEP ATP III Guidelines: Results lower than 40 mg/dL are suggestive of increased risk for coronary artery disease. Results > or=to 60 mg/dL are considered a negative risk factor. 20 Per NCEP ATP III Guidelines: Normal Population <130 Patients with medical conditions: CHD/DM Optimal: <100 Borderline high: 130-159 High: 160-189 Very high: >189 21 This sample is drawn by:RH [id number] Consistent with previous result(s). 23 Concerning GFR Guidelines for Americans: Normal function or mild renal disease, if clinically at risk: >/=60 mL/min Moderately decreased: 30-59 Severely decreased: 15-29 Renal failure: <15 24 Concerning GFR Guidelines: Normal function or mild renal disease, if clinically at risk: >/=60 mL/min Moderately decreased: 30-59 Severely decreased: 15-29 Renal failure: <15 Glomerular Filtration Rate (GFR) is estimated based on the MDRD equation, which assumes a steady state for creatinine as recommended by the National Kidney Disease Education Program in conjunction with the National Institutes of Health and the National Kidney Foundation. Clinical conditions in which it may be necessary to measure GFR by using clearance methods include extremes of age and body size, severe malnutrition or obesity, diseases of skeletal muscle, paraplegia or quadriplegia, vegetarian diet, rapidly changing kidney function, and calculation of the dose of potentially toxic drugs that are excreted by the kidneys. 25 Per NCEP ATP III Guidelines: Results lower than 40 mg/dL are suggestive of increased risk for coronary artery disease. Results > or=to 60 mg/dL are considered a negative risk factor. 26 Per NCEP ATP III Guidelines: Normal Population <130 Patients with medical conditions: CHD/DM Optimal: <100 Borderline high: 130-159 High: 160-189 Very high: >189 27 This sample is drawn by:DONNA. 28 133 Electrolytes confirmed by repeat. 29 Concerning GFR Guidelines for Americans: Normal function or mild renal disease, if clinically at risk: >/=60 mL/min Moderately decreased: 30-59 Severely decreased: 15-29 Renal failure: <15 30 Concerning GFR Guidelines: Normal function or mild renal disease, if clinically at risk: >/=60 mL/min Moderately decreased: 30-59 Severely decreased: 15-29 Renal failure: <15 Glomerular Filtration Rate (GFR) is estimated based on the MDRD equation, which assumes a steady state for creatinine as recommended by the National Kidney Disease Education Program in conjunction with the National Institutes of Health and the National Kidney Foundation. Clinical conditions in which it may be necessary to measure GFR by using clearance methods include extremes of age and body size, severe malnutrition or obesity, diseases of skeletal muscle, paraplegia or quadriplegia, vegetarian diet, rapidly changing kidney function, and calculation of the dose of potentially toxic drugs that are excreted by the kidneys. 31 Per NCEP ATP III Guidelines: Results lower than 40 mg/dL are suggestive of increased risk for coronary artery disease. Results > or=to 60 mg/dL are considered a negative risk factor. 32 Per NCEP ATP III Guidelines: Normal Population <130 Patients with medical conditions: CHD/DM Optimal: <100 Borderline high: 130-159 High: 160-189 Very high: >189 33 < 0.90 NEGATIVE > 0.89 AND < 1.09 INDETERMINATE > 1.09 POSITIVE Unless otherwise specified, testing performed by [facility] [address] [place] [id number] 34 This sample is drawn by:NEVIN 35 Per NCEP ATP III Guidelines: Results lower than 40 mg/dL are suggestive of increased risk for coronary artery disease. Results > or=to 60 mg/dL are considered a negative risk factor. 36 Per NCEP ATP III Guidelines: Normal Population <130 Patients with medical conditions: CHD/DM Optimal: <100 Borderline high: 130-159 High: 160-189 Very high: >189 37 131 Results verified by repeat analysis 38 Concerning GFR Guidelines: Normal function or mild renal disease, if clinically at risk: >/=60 mL/min Moderately decreased: 30-59 Severely decreased: 15-29 Renal failure: <15 Glomerular Filtration Rate (GFR) is estimated based on the MDRD equation, which assumes a steady state for creatinine as recommended by the National Kidney Disease Education Program in conjunction with the National Institutes of Health and the National Kidney Foundation. Clinical conditions in which it may be necessary to measure GFR by using clearance methods include extremes of age and body size, severe malnutrition or obesity, diseases of skeletal muscle, paraplegia or quadriplegia, vegetarian diet, rapidly changing kidney function, and calculation of the dose of potentially toxic drugs that are excreted by the kidneys. 39 Concerning GFR Guidelines for Americans: Normal function or mild renal disease, if clinically at risk: >/=60 mL/min Moderately decreased: 30-59 Severely decreased: 15-29 Renal failure: <15 40 This sample is drawn by:DONNA. 41 Concerning GFR Guidelines for Americans: Normal function or mild renal disease, if clinically at risk: >/=60 mL/min Moderately decreased: 30-59 Severely decreased: 15-29 Renal failure: <15 42 Concerning GFR Guidelines: Normal function or mild renal disease, if clinically at risk: >/=60 mL/min Moderately decreased: 30-59 Severely decreased: 15-29 Renal failure: <15 Glomerular Filtration Rate (GFR) is estimated based on the MDRD equation, which assumes a steady state for creatinine as recommended by the National Kidney Disease Education Program in conjunction with the National Institutes of Health and the National Kidney Foundation. Clinical conditions in which it may be necessary to measure GFR by using clearance methods include extremes of age and body size, severe malnutrition or obesity, diseases of skeletal muscle, paraplegia or quadriplegia, vegetarian diet, rapidly changing kidney function, and calculation of the dose of potentially toxic drugs that are excreted by the kidneys. 43 Per NCEP ATP III Guidelines: Results lower than 40 mg/dL are suggestive of increased risk for coronary artery disease. Results > or=to 60 mg/dL are considered a negative risk factor. 44 Per NCEP ATP III Guidelines: Normal Population <130 Patients with medical conditions: CHD/DM Optimal: <100 Borderline high: 130-159 High: 160-189 Very high: >189 45 This sample is drawn by:MM 46 Per NCEP ATP III Guidelines: Results lower than 40 mg/dL are suggestive of increased risk for coronary artery disease. Results > or=to 60 mg/dL are considered a negative risk factor. 47 Per NCEP ATP III Guidelines: Optimal: <100 Near optimal: 100-129 Borderline high: 130-159 High: 160-189 Very high: >189 48 131 Results verified by repeat analysis 49 Concerning GFR Guidelines: Normal function or mild renal disease, if clinically at risk: >/=60 mL/min Moderately decreased: 30-59 Severely decreased: 15-29 Renal failure: <15 Glomerular Filtration Rate (GFR) is estimated based on the MDRD equation, which assumes a steady state for creatinine as recommended by the National Kidney Disease Education Program in conjunction with the National Institutes of Health and the National Kidney Foundation. Clinical conditions in which it may be necessary to measure GFR by using clearance methods include extremes of age and body size, severe malnutrition or obesity, diseases of skeletal muscle, paraplegia or quadriplegia, vegetarian diet, rapidly changing kidney function, and calculation of the dose of potentially toxic drugs that are excreted by the kidneys. 50 Concerning GFR Guidelines for Americans: Normal function or mild renal disease, if clinically at risk: >/=60 mL/min Moderately decreased: 30-59 Severely decreased: 15-29 Renal failure: <15 51 PER NCEP ATP III GUIDELINES: RESULTS LOWER THAN 40 MG/DL ARE SUGGESTIVE OF INCREASED RISK FOR CORONARY ARTERY DISEASE. RESULTS > OR=TO 60 MG/DL ARE CONSIDERED A NEGATIVE RISK FACTOR. 52 INTERPRETATION OF CHOL-HDL RATIO CHD RISK FEMALE MALE VERY HIGH >8.3 >14.3 HIGH 5.6- 8.3 6.7- 14.3 AVERAGE 3.7- 5.6 4.0- 6.7 BELOW AVERAGE 2.5- 3.7 2.7- 4.0 PROTECTED <2.5 <2.7 53 PER NCEP ATP III GUIDELINES: OPTIMAL < 100 NEAR OPTIMAL 100 - 129 BORDERLINE HIGH 130 - 159 HIGH 160 - 189 VERY HIGH > 189 Unless otherwise specified, testing performed by [employer] [facility] [place] [id number] 54 HEMOGLOBIN A1c INTERPRETATION: 4.0-6.0% GOOD GLYCEMIC CONTROL 6.1-6.5% AT RISK FOR HYPERGLYCEMIA >6.5% DIABETIC/ POOR GLYCEMIC CONTROL REFERENCE: DIABETES CARE 32(7), 2009 IF A1c RESULT IS INCONSISTENT WITH CLINICAL ESTIMATES OF GLYCEMIC CONTROL, AN INTERFERING Hb VARIANT SHOULD BE CONSIDERED. Unless otherwise specified, testing performed by [employer] [facility] [place] [address] 55 NORMAL KIDNEY FUNCTION OR MILD DISEASE - GFR >OR=60 CHRONIC KIDNEY DISEASE - GFR 15 - 59 RENAL FAILURE - GFR <15 Est. GFR calculation based on the MDRD study equation, which assumes a steady state for creatinine. Est. GFR should not be used for medication dosing. Unless otherwise specified, testing performed by [employer] [facility] [place] [address] 56 PER NCEP ATP III GUIDELINES: RESULTS LOWER THAN 40 MG/DL ARE SUGGESTIVE OF INCREASED RISK FOR CORONARY ARTERY DISEASE. RESULTS > OR=TO 60 MG/DL ARE CONSIDERED A NEGATIVE RISK FACTOR. 57 INTERPRETATION OF CHOL-HDL RATIO CHD RISK FEMALE MALE VERY HIGH >8.3 >14.3 HIGH 5.6- 8.3 6.7- 14.3 AVERAGE 3.7- 5.6 4.0- 6.7 BELOW AVERAGE 2.5- 3.7 2.7- 4.0 PROTECTED <2.5 <2.7 58 PER NCEP ATP III GUIDELINES: OPTIMAL < 100 NEAR OPTIMAL 100 - 129 BORDERLINE HIGH 130 - 159 HIGH 160 - 189 VERY HIGH > 189 Unless otherwise specified, testing performed by [employer] [facility] [place] [address] 59 HEMOGLOBIN A1c INTERPRETATION: 4.0-6.0% GOOD GLYCEMIC CONTROL 6.1-6.5% AT RISK FOR HYPERGLYCEMIA >6.5% DIABETIC/ POOR GLYCEMIC CONTROL REFERENCE: DIABETES CARE 32(7), 2009 IF A1c RESULT IS INCONSISTENT WITH CLINICAL ESTIMATES OF GLYCEMIC CONTROL, AN INTERFERING Hb VARIANT SHOULD BE CONSIDERED. Unless otherwise specified, testing performed by [employer] [facility] [place] [address] 60 NORMAL KIDNEY FUNCTION OR MILD DISEASE - GFR >OR=60 CHRONIC KIDNEY DISEASE - GFR 15 - 59 RENAL FAILURE - GFR <15 Est. GFR calculation based on the MDRD study equation, which assumes a steady state for creatinine. Est. GFR should not be used for medication dosing. Unless otherwise specified, testing performed by [employer] [facility] [place] [address] 61 Unless otherwise specified, testing performed by [employer] [facility] [place] [address] 62 This sample is drawn by:CT 63 Unless otherwise specified, testing performed by [employer] [facility] [place] [address] 64 Unless otherwise specified, testing performed by [employer] [facility] [place] [address] 65 PER NCEP ATP III GUIDELINES: RESULTS LOWER THAN 40 MG/DL ARE SUGGESTIVE OF INCREASED RISK FOR CORONARY ARTERY DISEASE. RESULTS > OR=TO 60 MG/DL ARE CONSIDERED A NEGATIVE RISK FACTOR. 66 INTERPRETATION OF CHOL-HDL RATIO CHD RISK FEMALE MALE VERY HIGH >8.3 >14.3 HIGH 5.6- 8.3 6.7- 14.3 AVERAGE 3.7- 5.6 4.0- 6.7 BELOW AVERAGE 2.5- 3.7 2.7- 4.0 PROTECTED <2.5 <2.7 67 PER NCEP ATP III GUIDELINES: OPTIMAL < 100 NEAR OPTIMAL 100 - 129 BORDERLINE HIGH 130 - 159 HIGH 160 - 189 VERY HIGH > 189 Unless otherwise specified, testing performed by [employer] [facility] [place] [address] 68 NORMAL KIDNEY FUNCTION OR MILD DISEASE - GFR >OR=60 CHRONIC KIDNEY DISEASE - GFR 15 - 59 RENAL FAILURE - GFR <15 Est. GFR calculation based on the MDRD study equation, which assumes a steady state for creatinine. Est. GFR should not be used for medication dosing. Unless otherwise specified, testing performed by [employer] [facility] [place] [address] 69 Unless otherwise specified, testing performed by [employer] [facility] [place] [address] 70 HEMOGLOBIN A1c INTERPRETATION: 4.0-6.0% GOOD GLYCEMIC CONTROL 6.1-6.5% AT RISK FOR HYPERGLYCEMIA >6.5% DIABETIC/ POOR GLYCEMIC CONTROL REFERENCE: DIABETES CARE 32(7), 2009 IF A1c RESULT IS INCONSISTENT WITH CLINICAL ESTIMATES OF GLYCEMIC CONTROL, AN INTERFERING Hb VARIANT SHOULD BE CONSIDERED. Unless otherwise specified, testing performed by [employer] [facility] [place] [address] 71 PER NCEP ATP III GUIDELINES: RESULTS LOWER THAN 40 MG/DL ARE SUGGESTIVE OF INCREASED RISK FOR CORONARY ARTERY DISEASE. RESULTS > OR=TO 60 MG/DL ARE CONSIDERED A NEGATIVE RISK FACTOR. 72 INTERPRETATION OF CHOL-HDL RATIO CHD RISK FEMALE MALE VERY HIGH >8.3 >14.3 HIGH 5.6- 8.3 6.7- 14.3 AVERAGE 3.7- 5.6 4.0- 6.7 BELOW AVERAGE 2.5- 3.7 2.7- 4.0 PROTECTED <2.5 <2.7 73 PER NCEP ATP III GUIDELINES: OPTIMAL < 100 NEAR OPTIMAL 100 - 129 BORDERLINE HIGH 130 - 159 HIGH 160 - 189 VERY HIGH > 189 Unless otherwise specified, testing performed by [facility] [place] [address] 74 This sample is drawn by:[employer] 75 HEMOGLOBIN A1c INTERPRETATION: 4.0-6.0% GOOD GLYCEMIC CONTROL 6.1-6.5% AT RISK FOR HYPERGLYCEMIA >6.5% DIABETIC/ POOR GLYCEMIC CONTROL REFERENCE: DIABETES CARE 32(7), 2008 IF A1c RESULT IS INCONSISTENT WITH CLINICAL ESTIMATES OF GLYCEMIC CONTROL, AN INTERFERING Hb VARIANT SHOULD BE CONSIDERED. Unless otherwise specified, testing performed by [facility] [place] [address] 76 NORMAL KIDNEY FUNCTION OR MILD DISEASE - GFR >OR=60 CHRONIC KIDNEY DISEASE - GFR 15 - 59 RENAL FAILURE - GFR <15 Est. GFR calculation based on the MDRD study equation, which assumes a steady state for creatinine. Est. GFR should not be used for medication dosing. Unless otherwise specified, testing performed by [employer] [facility] [address] 77 Unless otherwise specified, testing performed by [employer] [facility] [place] [address] 78 Unless otherwise specified, testing performed by [employer] [facility] [address] 79 PER NCEP ATP III GUIDELINES: RESULTS LOWER THAN 40 MG/DL ARE SUGGESTIVE OF INCREASED RISK FOR CORONARY ARTERY DISEASE. RESULTS > OR=TO 60 MG/DL ARE CONSIDERED A NEGATIVE RISK FACTOR. 80 INTERPRETATION OF CHOL-HDL RATIO CHD RISK FEMALE MALE VERY HIGH >8.3 >14.3 HIGH 5.6- 8.3 6.7- 14.3 AVERAGE 3.7- 5.6 4.0- 6.7 BELOW AVERAGE 2.5- 3.7 2.7- 4.0 PROTECTED <2.5 <2.7 81 PER NCEP ATP III GUIDELINES: OPTIMAL < 100 NEAR OPTIMAL 100 - 129 BORDERLINE HIGH 130 - 159 HIGH 160 - 189 VERY HIGH > 189 Unless otherwise specified, testing performed by [employer] [facility] [place] [address] 82 FASTING This sample is drawn by:CT 83 HEMOGLOBIN A1c INTERPRETATION: 4.0-6.0% GOOD GLYCEMIC CONTROL 6.1-6.5% AT RISK FOR HYPERGLYCEMIA >6.5% DIABETIC/ POOR GLYCEMIC CONTROL REFERENCE: DIABETES CARE 32(7), 2009 IF A1c RESULT IS INCONSISTENT WITH CLINICAL ESTIMATES OF GLYCEMIC CONTROL, AN INTERFERING Hb VARIANT SHOULD BE CONSIDERED. Unless otherwise specified, testing performed by [employer] [facility] [place] [address] 84 PER NCEP ATP III GUIDELINES: RESULTS LOWER THAN 40 MG/DL ARE SUGGESTIVE OF INCREASED RISK FOR CORONARY ARTERY DISEASE. RESULTS > OR=TO 60 MG/DL ARE CONSIDERED A NEGATIVE RISK FACTOR. 85 INTERPRETATION OF CHOL-HDL RATIO CHD RISK FEMALE MALE VERY HIGH >8.3 >14.3 HIGH 5.6- 8.3 6.7- 14.3 AVERAGE 3.7- 5.6 4.0- 6.7 BELOW AVERAGE 2.5- 3.7 2.7- 4.0 PROTECTED <2.5 <2.7 86 PER NCEP ATP III GUIDELINES: OPTIMAL < 100 NEAR OPTIMAL 100 - 129 BORDERLINE HIGH 130 - 159 HIGH 160 - 189 VERY HIGH > 189 Unless otherwise specified, testing [place] [address] 87 NORMAL KIDNEY FUNCTION OR MILD DISEASE - GFR >OR=60 CHRONIC KIDNEY DISEASE - GFR 15 - 59 RENAL FAILURE - GFR <15 Est. GFR calculation based on the MDRD study equation, which assumes a steady state for creatinine. Est. GFR should not be used for medication dosing. Unless otherwise specified, [place] [address] 88 A REVIEW OF THE LITERATURE SUGGESTS THE FOLLOWING RANGES FOR THE CLASSIFICATION OF 25-OH VITAMIN D STATUS: VITAMIN D STATUS 25-OH VITAMIN D DEFICIENCY <20 NG/ML INSUFFICIENCY 20-30 NG/ML SUFFICIENCY 31 - 100 NG/ML TOXICITY > 100 NG/ML A PEDIATRIC REFERENCE RANGE HAS NOT BEEN ESTABLISHED USING THIS METHOD. (UPDATED RANGES EFFECTIVE 10/02/09) Unless otherwise specified, testing [place] [address] 89 This sample is drawn by: PAO 90 HEMOGLOBIN A1c INTERPRETATION: 4.0-6.0% GOOD GLYCEMIC CONTROL 6.1-6.5% AT RISK FOR HYPERGLYCEMIA >6.5% DIABETIC/ POOR GLYCEMIC CONTROL REFERENCE: DIABETES CARE 32(7), 2009 IF A1c RESULT IS INCONSISTENT WITH CLINICAL ESTIMATES OF GLYCEMIC CONTROL, AN INTERFERING Hb VARIANT SHOULD BE CONSIDERED. Unless otherwise specified, testing [place] [address] 91 NORMAL KIDNEY FUNCTION OR MILD DISEASE - GFR >OR=60 CHRONIC KIDNEY DISEASE - GFR 15 - 59 RENAL FAILURE - GFR <15 Est. GFR calculation based on the MDRD study equation, which assumes a steady state for creatinine. Est. GFR should not be used for medication dosing. Unless otherwise specified, testing performed by [employer] [facility] [address] 92 A REVIEW OF THE LITERATURE SUGGESTS THE FOLLOWING RANGES FOR THE CLASSIFICATION OF 25-OH VITAMIN D STATUS: VITAMIN D STATUS 25-OH VITAMIN D DEFICIENCY <20 NG/ML INSUFFICIENCY 20-30 NG/ML SUFFICIENCY 31 - 100 NG/ML TOXICITY > 100 NG/ML A PEDIATRIC REFERENCE RANGE HAS NOT BEEN ESTABLISHED USING THIS METHOD. (UPDATED RANGES EFFECTIVE 10/02/09) Unless otherwise specified, testing performed by [employer] [facility] [place] [address] 93 FASTING This sample is drawn by: [place] 94 Unless otherwise specified, [place] [address] 95 Unless otherwise specified, testing performed by [employer] [facility] [place] [address] 96 Unless otherwise specified, testing performed by [employer] [facility] [place] [address] 97 PER NCEP ATP III GUIDELINES: RESULTS LOWER THAN 40 MG/DL ARE SUGGESTIVE OF INCREASED RISK FOR CORONARY ARTERY DISEASE. RESULTS > OR=TO 60 MG/DL ARE CONSIDERED A NEGATIVE RISK FACTOR. 98 PER NCEP ATP III GUIDELINES: OPTIMAL: <100 NEAR OPTIMAL: 100 - 129 BORDERLINE HIGH: 130 - 159 HIGH: 160 - 189 VERY HIGH: >189 99 INTERPRETATION OF CHOL-HDL RATIO CHD RISK FEMALE MALE VERY HIGH >8.3 >14.3 HIGH 5.6 - 8.3 6.7 - 14.3 AVERAGE 3.7 - 5.6 4.0 - 6.7 BELOW AVERAGE 2.5 - 3.7 2.7 - 4.0 PROTECTED <2.5 <2.7 100 Unless otherwise specified, testing performed by [employer] [facility] [place] [address] 101 NORMAL KIDNEY FUNCTION OR MILD DISEASE - GFR >OR=60 CHRONIC KIDNEY DISEASE - GFR 15 - 59 RENAL FAILURE - GFR <15 Est. GFR calculation based on the MDRD study equation, which assumes a steady state for creatinine. Est. GFR should not be used for medication dosing. Unless otherwise specified, testing performed by [employer] [address] [place] [address] 102 FASTING 103 PER NCEP ATP III GUIDELINES: RESULTS LOWER THAN 40 MG/DL ARE SUGGESTIVE OF INCREASED RISK FOR CORONARY ARTERY DISEASE. RESULTS > OR=TO 60 MG/DL ARE CONSIDERED A NEGATIVE RISK FACTOR. 104 INTERPRETATION OF CHOL-HDL RATIO CHD RISK FEMALE MALE VERY HIGH >8.3 >14.3 HIGH 5.6- 8.3 6.7- 14.3 AVERAGE 3.7- 5.6 4.0- 6.7 BELOW AVERAGE 2.5- 3.7 2.7- 4.0 PROTECTED <2.5 <2.7 105 PER NCEP ATP III GUIDELINES: OPTIMAL < 100 NEAR OPTIMAL 100 - 129 BORDERLINE HIGH 130 - 159 HIGH 160 - 189 VERY HIGH > 189 Unless otherwise specified, testing performed by [employer] [facility] [place] [address] 106 A REVIEW OF THE LITERATURE SUGGESTS THE FOLLOWING RANGES FOR THE CLASSIFICATION OF 25-OH VITAMIN D STATUS: VITAMIN D STATUS 25-OH VITAMIN D DEFICIENCY <20 NG/ML INSUFFICIENCY 20-30 NG/ML SUFFICIENCY 31 - 100 NG/ML TOXICITY > 100 NG/ML A PEDIATRIC REFERENCE RANGE HAS NOT BEEN ESTABLISHED USING THIS METHOD. (UPDATED RANGES EFFECTIVE 10/02/09) Unless otherwise specified, testing performed by [employer] [address] [place] [address] 107 FASTING This sample is drawn by: DB Test deleted. Reason: WRONG TEST ORDERED 108 Unless otherwise specified, testing performed by [employer] [address] [place] [address] 109 Unless otherwise specified, testing performed by [employer] [address] [place] [address] 110 PER NCEP ATP III GUIDELINES: RESULTS LOWER THAN 40 MG/DL ARE SUGGESTIVE OF INCREASED RISK FOR CORONARY ARTERY DISEASE. RESULTS > OR=TO 60 MG/DL ARE CONSIDERED A NEGATIVE RISK FACTOR. 111 PER NCEP ATP III GUIDELINES: OPTIMAL: <100 NEAR OPTIMAL: 100 - 129 BORDERLINE HIGH: 130 - 159 HIGH: 160 - 189 VERY HIGH: >189 112 INTERPRETATION OF CHOL-HDL RATIO CHD RISK FEMALE MALE VERY HIGH >8.3 >14.3 HIGH 5.6 - 8.3 6.7 - 14.3 AVERAGE 3.7 - 5.6 4.0 - 6.7 BELOW AVERAGE 2.5 - 3.7 2.7 - 4.0 PROTECTED <2.5 <2.7 113 FASTING 114 NORMAL KIDNEY FUNCTION OR MILD DISEASE - GFR >OR=60 CHRONIC KIDNEY DISEASE - GFR 15 - 59 RENAL FAILURE - GFR <15 Est. GFR calculation based on the MDRD study equation, which assumes a steady state for creatinine. Est. GFR should not be used for medication dosing. Unless otherwise specified, testing performed by [employer] [facility] [place] [address] 115 FASTING 116 PER NCEP ATP III GUIDELINES: RESULTS LOWER THAN 40 MG/DL ARE SUGGESTIVE OF INCREASED RISK FOR CORONARY ARTERY DISEASE. RESULTS > OR=TO 60 MG/DL ARE CONSIDERED A NEGATIVE RISK FACTOR. 117 INTERPRETATION OF CHOL-HDL RATIO CHD RISK FEMALE MALE VERY HIGH >8.3 >14.3 HIGH 5.6- 8.3 6.7- 14.3 AVERAGE 3.7- 5.6 4.0- 6.7 BELOW AVERAGE 2.5- 3.7 2.7- 4.0 PROTECTED <2.5 <2.7 118 PER NCEP ATP III GUIDELINES: OPTIMAL < 100 NEAR OPTIMAL 100 - 129 BORDERLINE HIGH 130 - 159 HIGH 160 - 189 VERY HIGH > 189 Unless otherwise specified, testing performed by [employer] [facility] [place] [address] 119 Unless otherwise specified, testing performed by [employer] [facility] [place] [address] 120 Unless otherwise specified, testing performed by [employer] [facility] [place] [address] 121 FASTING 122 PER NCEP ATP III GUIDELINES: RESULTS LOWER THAN 40 MG/DL ARE SUGGESTIVE OF INCREASED RISK FOR CORONARY ARTERY DISEASE. RESULTS > OR=TO 60 MG/DL ARE CONSIDERED A NEGATIVE RISK FACTOR. 123 INTERPRETATION OF CHOL-HDL RATIO CHD RISK FEMALE MALE VERY HIGH >8.3 >14.3 HIGH 5.6- 8.3 6.7- 14.3 AVERAGE 3.7- 5.6 4.0- 6.7 BELOW AVERAGE 2.5- 3.7 2.7- 4.0 PROTECTED <2.5 <2.7 124 PER NCEP ATP III GUIDELINES: OPTIMAL < 100 NEAR OPTIMAL 100 - 129 BORDERLINE HIGH 130 - 159 HIGH 160 - 189 VERY HIGH > 189 Unless otherwise specified, testing performed by [employer] [facility] [place] [address] 125 Test deleted. Reason: ENTRY ERROR 126 FASTING 127 PER NCEP ATP III GUIDELINES: RESULTS LOWER THAN 40 MG/DL ARE SUGGESTIVE OF INCREASED RISK FOR CORONARY ARTERY DISEASE. RESULTS > OR=TO 60 MG/DL ARE CONSIDERED A NEGATIVE RISK FACTOR. 128 INTERPRETATION OF CHOL-HDL RATIO CHD RISK FEMALE MALE VERY HIGH >8.3 >14.3 HIGH 5.6- 8.3 6.7- 14.3 AVERAGE 3.7- 5.6 4.0- 6.7 BELOW AVERAGE 2.5- 3.7 2.7- 4.0 PROTECTED <2.5 <2.7 129 PER NCEP ATP III GUIDELINES: OPTIMAL < 100 NEAR OPTIMAL 100 - 129 BORDERLINE HIGH 130 - 159 HIGH 160 - 189 VERY HIGH > 189 130 AUTOMATED DIFFERENTIAL Procedures Date CPT Code Description Status 10/19/2017 08470 Electrocardiogram Complete Completed 05/08/2003 12056 Electrocardiogram Complete Completed Encounters Type Date Location Provider CPT E/M Dx Office Visit 10/19/2017 11:00[place] [address] J15.9 J02.9 F17.210 R61 Office Visit 08/03/2017 2:40p [facility] 09478 F90.0 E78.2 E11.65 G47.30 Office Visit 04/20/2017 3:30p Mar[facility] Clement [facility] 14935 E11.65 E78.2 F90.9 Office Visit 11/17/2016 11:40a Mar[facility] Clement [facility] 04113 F33.0 G47.30 F15.20 R45.4 Office Visit 09/08/2016 3:00p Marcia Clement RN [facility] 75814 Z00.00 E11.65 E78.2 I10 F90.0 K21.9 Office Visit 07/07/2016 9:40a Mar[facility] Clement [facility] 93986 E11.65 E78.2 I10 F90.0 K21.9 Office Visit 03/31/2016 3:00p Marcia Clement RN [facility] 54474 I10 E11.65 R63.5 E78.2 Z12.5 F90.0 K21.9 D17.1 Office Visit 11/25/2015 8:40[place] [address] N49.9 Office Visit 08/20/2015 8:40a Marcia Clement RN [facility] 96974 E11.9 E78.2 I10 R63.5 K21.0 Office Visit 02/14/2015 11:20a Marcia Clement RN [facility] 63553 726.19 Office Visit 11/14/2014 2:40p Marcia Clement RN [facility] 55249 250.00 272.2 401.9 530.11 783.1 Office Visit 05/09/2014 8:40a Marcia Clement RN [facility] 77035 401.9 272.2 790.21 530.11 789.06 Office Visit 11/07/2013 8:20a Marcia Clement RN [facility] 76121 272.2 790.21 250.00 Office Visit 08/10/2013 1:20p Marcia Clement RN [facility] 37818 314.00 272.2 790.21 Office Visit 02/01/2013 1:00p Marcia Clement RN [facility] 12283 790.21 272.2 314.00 305.1 719.46 Office Visit 07/06/2012 8:40a Marcia Clement RN [facility] 33684 790.21 272.2 314.00 305.1 719.46 Office Visit 03/02/2012 9:00a Marcia Clement RN [facility] 04614 V70.0 272.2 790.21 314.00 305.1 Office Visit 01/03/2012 1:00[place] [address] 780.2 272.2 250.00 Office Visit 11/17/2011 8:40a Marcia Clement RN [facility] 04302 272.2 790.21 314.00 305.1 Office Visit 10/05/2011 2:40p Marcia Clement RN [facility] 66884 272.2 790.21 314.00 Office Visit 02/02/2011 9:40a Marcia Clement RN [facility] 03470 314.00 272.2 790.21 Office Visit 09/23/2010 9:00a Marcia Clement RN [facility] 93670 305.1 250.00 268.9 719.46 Office Visit 05/13/2010 9:00a Marcia Clement RN [facility] 97722 912.0 719.46 268.9 790.21 V07.2 Office Visit 02/19/2010 9:15a Marcia Clement RN [facility] 30732 790.21 314.00 912.0 268.9 Office Visit 12/30/2009 2:15p Marcia Clement RN [facility] 23041 719.66 790.21 Office Visit 08/26/2009 3:00p Marcia Clement RN [facility] 32601 314.00 305.1 719.46 Office Visit 05/22/2009 8:15a Marcia Clement RN [facility] 36111 300.02 401.1 272.2 Office Visit 03/20/2009 8:15a Marcia Clement RN [facility] 42736 314.01 272.2 Office Visit 02/19/2009 10:15a Marcia Clement RN [facility] 17756 293.83 Office Visit 01/30/2009 8:00a Marcia Clement RN [facility] 28777 293.83 272.2 Office Visit 12/26/2007 1:00p Marcia Clement, JITENDRA [facility] 37996 296.31 272.2 401.1 Office Visit 04/12/2007 8:15a Marcia Clement RN [facility] 41413 V70.0 296.31 477.9 530.81 Office Visit 08/15/2006 8:00a Marcia Clement RN [facility] 91197 296.31 719.46 Office Visit 05/08/2003 2:30p Marcia Clement RN [facility] 49863 780.79 919.0 V06.5 Plan of Care 11/02/2017 - Marcia Thornton, RN MS FNPE11.65 Type 2 diabetes mellitus with hyperglycemiaNew Medication:Glimepiride 4 mgNew Labs:Hemoglobin [id number] Met Panel-FCMGFollow up:4 months for cpe/ hefiilsS20.0 Attn- defct hyperactivity disorder, predom inattentive typeE78.2 Mixed hyperlipidemiaNew Labs:SmknaR70.30 Sleep apnea, unspecifiedNew Medication: UouutA57.21 Male erectile disorderNew Medication:Sildenafil Citrate 100 mg
--- OUTSIDE RECORDS SUMMARY | 2017-11-13 07:18 | XMS REPORT ---
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 Onset: 02/02/2011 Mixed hyperlipidemia Marcia Thornton RN MS Active 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 Onset: 02/02/2011 Impaired fasting glycaemia Marcia Thornton, JITENDRA MS Active 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 Family History Date Family Member(s) Problem(s) Comments Father 66 Father Sleep Apnea Father COPD Father Hypercholesterolemia Father Depression doing well on zoloft and wellbutrin Mother 63 Mother Hypertension Mother Hypercholesterolemia First Brother esophageal varices First Brother barretts esophagitis Social History Type Date Description Comments Marital Status Significant Other Lives With Female Partner Smoke-Free Home is not smoke-free 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 Out of work 10/19 thru 10/23/2017 Azithromycin 10/19 Hx Tablets 500mg 3tabs 1 by mouth J15.9 Ledy every day Berenice Marin MD 10/26 Proair HFA 10/19 Hx Aerosol 108(90Bas 8.500gm 2 puffs J15.9 Ledy e) every 6 Berenice - blessing/Act hours as MD Tania 10/24 needed wheezing/s ob Hydrocodone-Linh 10/19 Hx Syrup 5-1.5mg/5 100ml 5 J15. [facility] tropine ML milliliter Berenice - s every 6 MD Tania 10/24 hours as needed for severe cough. avoid driving while on this medication . Atomoxetine HCL 08/03 Active Capsules 40mg 30caps one tab F90.0 once daily Marcia in am. JITENDRA Rubin MS 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 Gabapentin 11/17 Active Capsules 300mg 60caps Take Two F33.0 Capsules Marcia By Mouth JITENDRA Rubin MS At Bedtime 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 as Needed For Sleep Citalopram 11/17 Active Tablets 20mg 30tabs Take F33.0 Hydrobromid One-Half Marcia Tablet By JITENDRA Rubin MS Mouth 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 Daily For 4 Days Then Increase To One Tablet Once Daily Glimepiride 09/08 Active Tablets 2mg 30tabs Take One E11.65 Tablet By Marcia Mouth JITENDRA Rubin MS Every Day 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 At Breakfast Freestyle System 07/07 Active Kit 1units use as E11.65 directed Marcia daily to JITENDRA Rubin MS monitor 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 blood sugar Freestyle Test 04/04 Active Strips 100units To Use E11.65 Norberto With Once Marcia Daily JITENDRA Rubin MS Glucose 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 Monitoring DX E11.65 Lancets 03/31 Active Misc 100units Use as E11.65 Jimenez Thorntone Directed Marcia Safety For Once JITENDRA Rubin MS Daily 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 Glucose Monitoring Atorvastatin 03/31 Active Tablets 10mg 90tabs 1 by mouth E78.2 [place] Calcium every day Marcia Rubin RN MS 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 Omeprazole 03/31 Active Capsules 20mg 90caps take one K21.[address] [place] [address] capsule by Marcia mouth JITENDRA Rubin MS every day 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 Clotrimazole 11/25 Active Cream 1% 28.350gm apply B37.42 [place], Anti-Fungal twice Berenice daily to MD Tania affected area Lisinopril 08/20 Active Tablets 10mg 90tabs 1 by mouth I10 Norberto every day Marcia Rubin RN MS Escitalopram 08/03 Hx Tablets 20mg 90tabs 1 by mouth F33.0 Norberto, every day Marcia Rubin RN MS 08/03 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 Return To Work 11/23 Hx Norberto, With Marciaraquel Rubin RN MS 04/20 Out Of Work 11/17 Hx for F33.0 Norberto medical Marcia - reasons Caryn RN MS 04/20 for one week returning on 11/25 Lisinopril 07/07 Hx Tablets 20mg 1 by mouth I10 Norberto every day Marcia Rubin RN MS 07/07 Glimepiride 03/31 Hx Tablets 1mg 60tabs take 1 E11.65 tablet by Marcia - mouth Caryn RN MS 09/08 daily, february increase to 2 tabs/ aim at morning sugar 120-150 Glucose 03/31 Hx for once A E11.65 Norberto, day Marcia Device - glucosee Caryn RN MS 07/07 monitoring Accu-Chek 03/31 Hx Strips 100units use qd- as E11. Norberto Smart needed for Marcia - diabetes Caryn RN MS 04/04 testing dx e11.9, e11.65 Cyclobenzaprine 02/14 Hx Tablets 10mg 90tabs 1 every 726.19 Norberto night at Marcia - bedtime Caryn RN MS 09/08 and 11/01 tab every 8 hours as needed muscle spasm. Out Of Work For 02/14 Hx 02/14-. 726.19 Norberto, Medical Reasons return to Marcia - full duty Caryn RN MS 08/20 on 02/17. 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 Vicodin 02/14 Hx Tablets 5-300mg 20tabs 1- tab q4 726.19 [place]berto, hours as Marcia - needed C, RN MS 02/14 pain. Take With Food. Lidocaine 02/14 Hx Patches 5% samples apply 726.19 daily for Marcia - 12 hours Caryn RN MS 08/20 and remove for 12 hours Hydrocodone 02/14 Hx Tablets 5-300mg 20tabs 1 Tab Q 4 726.19 [place]to, Bitartrate/Aceta HRS prn Marcia minophen - Pain Caryn RN MS 02/14 Hydrocodone 02/14 Hx 5-325mg 20units 1 tab 726.19 [place], Bitartrate Every 4 Marcia Acetaminophen - Hours as Caryn RN MS 02/14 needed - For severe pain Hydrocodone-Acet 02/14 Hx Tablets 5-325mg 20tabs 1 tab by 726.19 mouth Marcia - every 4 Caryn RN MS 08/20 hours needed pain BP Cuff, 11/14 Hx for weekly I10 [place], bp checks Marcia - dx Caryn, RN MS 08/20 hypertensi on/diabete s Omeprazole 05/09 Hx Capsules 40mg 30caps take one K21.9 DR capsule by Marcia - tommy Rubin RN MS 03/31 every day Ibuprofen 02/01 Hx Tablets 600mg 100tabs 1 q6 hrs 719.46 prn pain Marcia Rubin RN MS 08/20 Simvastatin 06/10 Hx Tablets 40mg 90tabs 1 po qd 272.2 Norberto Marcia Rubin RN MS 08/10 Simvastatin 02/04 Hx Tablets 20mg 30tabs one tablet Norberto before bed Marcia Rubin RN MS 06/10 Ibuprofen 05/13 Hx Tablets 800mg 90tabs 1 po tid 719.46 Norberto with food Marcia Rubin RN MS 02/01 Drisdol 02/19 Hx Capsules 73991Duvg 8caps 1 tab po q 268.9 Norberto weekly for Marcia - 8 weeks JITENDRA Rubin MS 02/02 Metformin HCL 01/12 Hx Tablets 500mg 60tabs 1tab po Norberto bid with Marcia Rubin RN MS 01/02 Meloxicam 12/30 Hx Tablets 7.5mg 30tabs take 1 719.66 [place]to tablet by Marcia Rubin RN MS 09/23 every day for pain Ibuprofen 08/26 Hx Tablets 800mg 60tabs 1 po bid 719.46 Norberto Marcia Rubin RN MS 12/30 Adderall XR 01/30 Hx Caps ER 30mg 30caps one every F06.30 Ledy 24HR day february Berenice Marin MD 04/20 F90.0 Wellbutrin XL 08/15/2006 - Hx Tablets 300mg 30tabs qd 296.31 Marcia Thornton 02/19/2009 JITENDRA Rubin MS 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 Immunizations CPT Code Status Date Vaccine Lot # [id number] Given 05/13/2010 Tdap (Adacel) Ages 7 And Above Only [id number] Given 05/08/2003 Immunization Td 7 Yrs Or Older [id number] Refused 08/03/2017 Influenza Vac, 3 Yrs & Older, Quadrivalent, Split, [place] Use [id number] Refused 04/20/2017 Influenza Vac, 3 Yrs & Older, Quadrivalent, Split, Im Use Vital Signs Date Vital Result Comment 10/19/2017 Body Temperature 99.5 F Weight 221.38 [...] Average Glucose Calc 321 High 71-140 1 Comprehensive Metabolic (CMP) 09/14/2016 Sodium 128 mmol/L [...] Allison Egfr >60 >60 9 Laboratory test finding 09/14/2016 Hemoglobin A1c 13.4 % High 4.1-5.9 Laboratory test finding 09/08/2016 Microalbumin, Random 11.4 ug/ml 0.0- 20.0 Urine Laboratory test finding 04/07/2016 Hemoglobin A1c 13.1 % High 4.1-5.9 Lipid 04/07/2016 Cholesterol 299 mg/dL High 50-199 [...] 231 mg/dL High 30-200 HDL 47 mg/dL 29-71 19 Chol/ HDL Ratio 6.7 ratio 4.0-6.7 [...] 8-42 21 Anion Gap 16 mmol/L High 6-14 21 Allison Egfr >60 >60 21, 23 Non Allison Egfr >60 >60 21, 24 Laboratory test finding 12/17/2014 Hemoglobin A1c 9.2 % High 4.1-5.9 21 Lipid 12/17/2014 Cholesterol 269 mg/dL High 50-199 21 Triglycerides 150 mg/dL 30-200 21 HDL 54 mg/dL 29-71 21, 25 Chol/ HDL Ratio 5.0 ratio 4.0-6.7 21 VLDL 30 mg/dL High 2-29 21 LDL (Calc) 185 mg/dL High 20-99 [...] 112 mg/dL 30-200 27 HDL 44 mg/dL 29-71 27, 31 Chol/ HDL Ratio 4.1 ratio 4.0-6.7 27 VLDL 22 mg/dL 2-29 27 LDL (Calc) 116 mg/dL High 20-99 27, 32 Laboratory test 05/21/2014 H Pylori AB Igg <0.40 U/mL (<0.90) 27, 33 finding Lipid 11/07/2013 Cholesterol 259 mg/dL High 50-199 34 Triglycerides 155 mg/dL 30-200 34 HDL 49 mg/dL - 34, 35 Chol/ HDL Ratio 5.3 ratio 4.0-6.7 34 VLDL 31 mg/dL High 2- 34 LDL (Calc) 179 mg/dL High 20-99 [...] 4.9 ratio 4.0-6.7 40 VLDL 19 mg/dL 2- 40 LDL (Calc) 131 mg/dL High 20-99 [...] 62 Lymph % 21.0 % (16.0-52.0) 62 [place] % 9.6 % High (0-8.0) 62 Eos % 3.2 % (0-5.0) 62 Baso % 0.5 % (0-4.0) 62 Neut # 5.9 K/UL (1.8-7.7) 62 Lymph # 1.9 K/UL (1.2-4.8) 62 [place] # 0.9 K/UL High (0-0.8) 62 Eos [...] D 25 Hydroxy - 26 ng/mL 10-65 82, 88 [place] Hemoglobin A1c 05/13/2010 Hemoglobin [...] Co2 (Carbon Dioxide) - LA 24 mmol/L 22- 107 Glucose - LA 131 mg/dL (70-110) [...] 123 LDL Cholesterol-LA 140 mg/dL (<130) 124 Laboratory test finding 12/26/2007 Direct LDL 196 mg/dL High 20-129 125 Lipid Panel 12/26/2007 Cholesterol - LA 277 mg/dL High 0-200 125 Triglyceride-LA 274 mg/dL High 30-200 125 HDL Cholesterol - LA 40 mg/dL (>40) 125 Cholesterol/HDL Ratio-LA 6.9 RATIO 125 Basic (BMP) 12/26/2007 Sodium-Na 139 mmol/L 136-145 125 Potassium-LA 4.2 mmol/L 3.6-5.2 125 Chloride - LA 99 mmol/L (100-108) 125 Co2 (Carbon Dioxide) - LA 26 mmol/L - 125 Glucose - LA 104 mg/dL (70-110) 125 Calcium - LA 9.7 mg/dL 8.4-10.2 125 Urea Nitrogen (BUN) - LA 21 mg/dL 7-24 125 Creatinine, Serum 1.0 mg/dL 0.8-1.3 125 BUN/Creat Ratio - LA 21.0 RATIO (10.0-20.0) 125 Anion Gap - LA 14 mmol/L 7-16 125 GFR - LA 88 ML/MIN/1. 59.001-9999 125 GFR () - LA >90 ML/MIN/1. (>59) 125 Lipid TX Panel 12/26/2007 Ast (Sgot) Liver Enzyme - LA 22 U/L 11-39 125 Alt (SGPT) Liver Enzyme -LA 54 U/L 25-69 125 Cholesterol DELETED mg/dL 50-199 125 Triglycerides DELETED mg/dL 10-150 125 HDL DELETED mg/dL 29-71 125 LDL (Calc) DELETED mg/dL 20-129 125 Chol/HDL Ratio DELETED Ratio 125 VLDL DELETED mg/dL 125 Basic (BMP) 04/12/2007 Sodium-Na 134 mmol/L (136-145) [...] Absolute Basophils -LA 0.0 K/UL 0-0.2 126 Laboratory test 04/12/2007 TSH, Ultrasensitive-LA 2.310 mIU/mL 0.340- 5.600 126 finding 1 This sample is drawn by:NB. 2 Beginning 12/26/06 PSA values assayed at [facility] uses chemiluminescence methodology manufactured by [employer] for use on the DXI analyzer. Values [...] 15 Beginning 12/26/06 PSA values assayed at [facility] uses chemiluminescence methodology manufactured by [employer] for use on the DXI analyzer. Values [...] high: >189 27 This sample is drawn by:NB. 28 133 Electrolytes confirmed by repeat. 29 [...] Unless otherwise specified, testing performed by [facility] [address] [place] [address] 34 This sample is drawn by:NEVIN 35 [...] high: >189 45 This sample is drawn by:NEVIN 46 Per NCEP ATP III Guidelines: Results [...] 189 Unless otherwise specified, testing [place] [address] 54 HEMOGLOBIN A1c INTERPRETATION: 4.0-6.0% GOOD GLYCEMIC CONTROL 6.1-6.5% AT RISK FOR HYPERGLYCEMIA >6.5% DIABETIC/ POOR GLYCEMIC CONTROL REFERENCE: DIABETES CARE 32(7), 2009 IF A1c RESULT IS INCONSISTENT WITH CLINICAL ESTIMATES OF GLYCEMIC CONTROL, AN INTERFERING Hb VARIANT SHOULD BE CONSIDERED. Unless otherwise specified, testing [place] [address] 55 NORMAL KIDNEY FUNCTION OR MILD DISEASE - GFR >OR=60 CHRONIC KIDNEY DISEASE - GFR 15 - 59 RENAL FAILURE - GFR <15 Est. GFR calculation based on the MDRD study equation, which assumes a steady state for creatinine. Est. GFR should not be used for medication dosing. Unless otherwise specified, testing performed by [facility] [address] [place] [id number] 56 PER NCEP ATP III GUIDELINES: RESULTS [...] 189 Unless otherwise specified, testing performed by [facility] [address] [place] [id number] 59 HEMOGLOBIN A1c INTERPRETATION: 4.0-6.0% GOOD GLYCEMIC CONTROL 6.1-6.5% AT RISK FOR HYPERGLYCEMIA >6.5% DIABETIC/ POOR GLYCEMIC CONTROL REFERENCE: DIABETES CARE 32(7), 2009 IF A1c RESULT IS INCONSISTENT WITH CLINICAL ESTIMATES OF GLYCEMIC CONTROL, AN INTERFERING Hb VARIANT SHOULD BE CONSIDERED. Unless otherwise specified, testing performed by [facility] [place] [address] 60 NORMAL KIDNEY FUNCTION OR MILD DISEASE - GFR >OR=60 CHRONIC KIDNEY DISEASE - GFR 15 - 59 RENAL FAILURE - GFR <15 Est. GFR calculation based on the MDRD study equation, which assumes a steady state for creatinine. Est. GFR should not be used for medication dosing. Unless otherwise specified, testing performed by [facility] [address] [place] [address] 61 Unless otherwise specified, testing performed by [facility] [address] [place] [address] 62 This sample is drawn by:CT 63 Unless otherwise specified, testing performed by [facility] [address] [place] [address] 64 Unless otherwise specified, testing performed by [facility] [address] [place] [address] 65 PER NCEP ATP III GUIDELINES: RESULTS [...] 189 Unless otherwise specified, testing performed by [facility] [place] [address] 68 NORMAL KIDNEY FUNCTION OR MILD DISEASE - GFR >OR=60 CHRONIC KIDNEY DISEASE - GFR 15 - 59 RENAL FAILURE - GFR <15 Est. GFR calculation based on the MDRD study equation, which assumes a steady state for creatinine. Est. GFR should not be used for medication dosing. Unless otherwise specified, testing [place] [address] 69 Unless otherwise specified, testing performed by [facility] [place] [address] 70 HEMOGLOBIN A1c INTERPRETATION: 4.0-6.0% GOOD GLYCEMIC CONTROL 6.1-6.5% AT RISK FOR HYPERGLYCEMIA >6.5% DIABETIC/ POOR GLYCEMIC CONTROL REFERENCE: DIABETES CARE 32(7), 2009 IF A1c RESULT IS INCONSISTENT WITH CLINICAL ESTIMATES OF GLYCEMIC CONTROL, AN INTERFERING Hb VARIANT SHOULD BE CONSIDERED. Unless otherwise specified, testing performed by [facility] [place] [address] 71 PER NCEP ATP III GUIDELINES: RESULTS [...] 189 Unless otherwise specified, testing performed by [facility] [place] [address] 74 This sample is drawn by:MM 75 HEMOGLOBIN A1c INTERPRETATION: 4.0-6.0% GOOD GLYCEMIC CONTROL 6.1-6.5% AT RISK FOR HYPERGLYCEMIA >6.5% DIABETIC/ POOR GLYCEMIC CONTROL REFERENCE: DIABETES CARE 32(7), 2008 IF A1c RESULT IS INCONSISTENT WITH CLINICAL ESTIMATES OF GLYCEMIC CONTROL, AN INTERFERING Hb VARIANT SHOULD BE CONSIDERED. Unless otherwise specified, testing performed by [facility] [place] [address] 76 NORMAL KIDNEY FUNCTION OR MILD DISEASE - GFR >OR=60 CHRONIC KIDNEY DISEASE - GFR 15 - 59 RENAL FAILURE - GFR <15 Est. GFR calculation based on the MDRD study equation, which assumes a steady state for creatinine. Est. GFR should not be used for medication dosing. Unless otherwise specified, testing performed by [facility] [place] [address] 77 Unless otherwise specified, testing performed by [facility] [place] [address] 78 Unless otherwise specified, testing performed by [facility] [place] [address] 79 PER NCEP ATP III GUIDELINES: RESULTS [...] 189 Unless otherwise specified, testing performed by [facility] [place] [address] 82 FASTING This sample is drawn by:CT 83 HEMOGLOBIN A1c INTERPRETATION: 4.0-6.0% GOOD GLYCEMIC CONTROL 6.1-6.5% AT RISK FOR HYPERGLYCEMIA >6.5% DIABETIC/ POOR GLYCEMIC CONTROL REFERENCE: DIABETES CARE 32(7), 2008 IF A1c RESULT IS INCONSISTENT WITH CLINICAL ESTIMATES OF GLYCEMIC CONTROL, AN INTERFERING Hb VARIANT SHOULD BE CONSIDERED. Unless otherwise specified, testing performed by [facility] [place] [address] 84 PER NCEP ATP III GUIDELINES: RESULTS [...] 189 Unless otherwise specified, testing performed by [facility] [place] [address] 87 NORMAL KIDNEY FUNCTION OR MILD DISEASE - GFR >OR=60 CHRONIC KIDNEY DISEASE - GFR 15 - 59 RENAL FAILURE - GFR <15 Est. GFR calculation based on the MDRD study equation, which assumes a steady state for creatinine. Est. GFR should not be used for medication dosing. Unless otherwise specified, testing performed by [facility] [address] [place] [address] 88 A REVIEW OF THE LITERATURE SUGGESTS THE FOLLOWING RANGES FOR THE CLASSIFICATION OF 25-OH VITAMIN D STATUS: VITAMIN D STATUS 25-OH VITAMIN D DEFICIENCY <20 NG/ML INSUFFICIENCY 20-30 NG/ML SUFFICIENCY 31 - 100 NG/ML TOXICITY > 100 NG/ML A PEDIATRIC REFERENCE RANGE HAS NOT BEEN ESTABLISHED USING THIS METHOD. (UPDATED RANGES EFFECTIVE 10/02/09) Unless otherwise specified, testing performed by [facility] [place] [address] 89 This sample is drawn by: DB 90 HEMOGLOBIN A1c INTERPRETATION: 4.0-6.0% GOOD GLYCEMIC CONTROL 6.1-6.5% AT RISK FOR HYPERGLYCEMIA >6.5% DIABETIC/ POOR GLYCEMIC CONTROL REFERENCE: DIABETES CARE 32(7), 2008 IF A1c RESULT IS INCONSISTENT WITH CLINICAL ESTIMATES OF GLYCEMIC CONTROL, AN INTERFERING Hb VARIANT SHOULD BE CONSIDERED. Unless otherwise specified, testing performed by [facility] [address] [place] [address] 91 NORMAL KIDNEY FUNCTION OR MILD DISEASE - GFR >OR=60 CHRONIC KIDNEY DISEASE - GFR 15 - 59 RENAL FAILURE - GFR <15 Est. GFR calculation based on the MDRD study equation, which assumes a steady state for creatinine. Est. GFR should not be used for medication dosing. Unless otherwise specified, testing performed by [facility] [place] [address] 92 A REVIEW OF THE LITERATURE SUGGESTS THE FOLLOWING RANGES FOR THE CLASSIFICATION OF 25-OH VITAMIN D STATUS: VITAMIN D STATUS 25-OH VITAMIN D DEFICIENCY <20 NG/ML INSUFFICIENCY 20-30 NG/ML SUFFICIENCY 31 - 100 NG/ML TOXICITY > 100 NG/ML A PEDIATRIC REFERENCE RANGE HAS NOT BEEN ESTABLISHED USING THIS METHOD. (UPDATED RANGES EFFECTIVE 10/02/09) Unless otherwise specified, testing performed by [facility] [address] [place] [address] 93 FASTING This sample is drawn by: LA 94 Unless otherwise specified, testing performed by [facility] [address] [place] [address] 95 Unless otherwise specified, testing performed by [facility] [address] [place] [address] 96 Unless otherwise specified, testing performed by [facility] [address] [place] [address] 97 PER NCEP ATP III GUIDELINES: RESULTS [...] 100 Unless otherwise specified, testing performed by [facility] [place] [address] 101 NORMAL KIDNEY FUNCTION OR MILD DISEASE - GFR >OR=60 CHRONIC KIDNEY DISEASE - GFR 15 - 59 RENAL FAILURE - GFR <15 Est. GFR calculation based on the MDRD study equation, which assumes a steady state for creatinine. Est. GFR should not be used for medication dosing. Unless otherwise specified, testing [place] [address] 102 FASTING 103 PER NCEP ATP III [...] 189 Unless otherwise specified, testing performed by [facility] [place] [address] 106 A REVIEW OF THE LITERATURE SUGGESTS THE FOLLOWING RANGES FOR THE CLASSIFICATION OF 25-OH VITAMIN D STATUS: VITAMIN D STATUS 25-OH VITAMIN D DEFICIENCY <20 NG/ML INSUFFICIENCY 20-30 NG/ML SUFFICIENCY 31 - 100 NG/ML TOXICITY > 100 NG/ML A PEDIATRIC REFERENCE RANGE HAS NOT BEEN ESTABLISHED USING THIS METHOD. (UPDATED RANGES EFFECTIVE 10/02/09) Unless otherwise specified, testing [place] [address] 107 FASTING This sample is drawn by: DB Test deleted. Reason: WRONG TEST ORDERED 108 Unless otherwise specified, testing [place] [address] 109 Unless otherwise specified, testing performed by [facility] [address] [place] [address] 110 PER NCEP ATP III GUIDELINES: RESULTS [...] dosing. Unless otherwise specified, testing performed by [facility] [address] [place] [address] 115 FASTING 116 PER NCEP ATP III [...] 189 Unless otherwise specified, testing performed by [facility] [place] [address] 119 Unless otherwise specified, testing performed by [facility] [address] [place] [address] 120 Unless otherwise specified, testing performed by [facility] [address] [place] [address] 121 FASTING 122 PER NCEP ATP III [...] 189 Unless otherwise specified, testing performed by [facility] [address] [place] [address] 125 Test deleted. Reason: ENTRY ERROR 126 [...] DIFFERENTIAL Procedures Date CPT Code Description Status 05/08/2003 82342 Electrocardiogram Complete Completed Encounters Type Date Location Provider CPT E/M Dx Office Visit 08/03/2017 2:40p Marcia Clement RN [facility] 40570 F90.0 E78.2 E11.65 G47.30 Office Visit 04/20/2017 3:30p Marcia Clement RN [facility] 47762 E11.65 E78.2 F90.9 Office Visit 11/17/2016 11:40a Marcia Clement RN [facility] 85310 F33.0 G47.30 F15.20 R45.4 Office Visit 09/08/2016 3:00p Marcia Clement RN [facility] 73251 Z00.00 E11.65 E78.2 I10 F90.0 K21.9 Office Visit 07/07/2016 9:40a Marcia Clement RN [facility] 77179 E11.65 E78.2 I10 F90.0 K21.9 Office Visit 03/31/2016 3:00p Marcia Clement RN [facility] 82955 I10 E11.65 R63.5 E78.2 Z12.5 F90.0 K21.9 D17.1 Office Visit 11/25/2015 8:40[place] [address] N49.9 Office Visit 08/20/2015 8:40a Marcia Clement RN [facility] 21254 E11.9 E78.2 I10 R63.5 K21.0 Office Visit 02/14/2015 11:20a Marcia Clement RN [facility] 28642 726.19 Office Visit 11/14/2014 2:40p Marcia Clement RN [facility] 08829 250.00 272.2 401.9 530.11 783.1 Office Visit 05/09/2014 8:40a Marcia Clement RN [facility] 82327 401.9 272.2 790.21 530.11 789.06 Office Visit 11/07/2013 8:20a Marcia Clement RN [facility] 30447 272.2 790.21 250.00 Office Visit 08/10/2013 1:20p Marcia Clement RN [facility] 39317 314.00 272.2 790.21 Office Visit 02/01/2013 1:00p Marcia Clement RN [facility] 55331 790.21 272.2 314.00 305.1 719.46 Office Visit 07/06/2012 8:40a Marcia Clement RN [facility] 15803 790.21 272.2 314.00 305.1 719.46 Office Visit 03/02/2012 9:00a Marcia Clement, JITENDRA [facility] [address] V70.0 272.2 790.21 314.00 305.1 Office Visit 01/03/2012 1:00[place] [address] 780.2 272.2 250.00 Office Visit 11/17/2011 8:40a Marcia Clement RN [facility] 07788 272.2 790.21 314.00 305.1 Office Visit 10/05/2011 2:40p Marcia Clement RN [facility] 70001 272.2 790.21 314.00 Office Visit 02/02/2011 9:40a Marcia Clement RN [facility] 15490 314.00 272.2 790.21 Office Visit 09/23/2010 9:00a Marcia Clement RN [facility] 77183 305.1 250.00 268.9 719.46 Office Visit 05/13/2010 9:00a Marcia Clement RN [facility] 98541 912.0 719.46 268.9 790.21 V07.2 Office Visit 02/19/2010 9:15a Marcia Clement RN [facility] 94171 790.21 314.00 912.0 268.9 Office Visit 12/30/2009 2:15p Marcia Clement RN [facility] 53808 719.66 790.21 Office Visit 08/26/2009 3:00p Marcia Clement RN [facility] 69632 314.00 305.1 719.46 Office Visit 05/22/2009 8:15a Marcia Clement RN [facility] 29894 300.02 401.1 272.2 Office Visit 03/20/2009 8:15a Marcia Clement RN [facility] 53830 314.01 272.2 Office Visit 02/19/2009 10:15a Marcia Clement, JITENDRA [facility] 57259 293.83 Office Visit 01/30/2009 8:00a Macria Clement RN [facility] 90077 293.83 272.2 Office Visit 12/26/2007 1:00p Marcia Clement, JITENDRA [facility] 24972 296.31 272.2 401.1 Office Visit 04/12/2007 8:15a Marcia Clement RN [facility] 29389 V70.0 296.31 477.9 530.81 Office Visit 08/15/2006 8:00a Marcia Clement RN [facility] 18907 296.31 719.46 Office Visit 05/08/2003 2:30p Marcia Clement RN [facility] 15714 780.79 919.0 V06.5 Plan of Care Future Appointment(s):11/02/2017 8:20 am - Marcia Thornton RN [facility] at [id number]/19/2017 - Will Frankel PAJ15.9 Unspecified bacterial pneumoniaNew Medication:Work NoteAzithromycin 500 mgProair HFA 108(90 Base) mcg/ ActHydrocodone-Homatropine 5-1.5 mg/5MLComments:will treat aggressively with meds. OOW. Treat s/s.J02.9 Acute pharyngitis, [id number] Nicotine dependence, cigarettes, uncomplicatedComments:needs to quit. discussed for ~ 7min.
[2017-11-13] MEDS ORDERED: Lidocaine 1% MPF* 2 ML VIAL INJ ONE (07:23)
[2017-11-13] MEDS ORDERED: Lidocaine 1% MPF* 2 ML VIAL ONE (07:25)
[2017-11-13 08:10] VITALS: BP 150/96
--- NOTE | 2017-11-13 09:51 | UC ---
Bruno Stafford Angela, scribed for Vernell Amor DO on 11/13/17 at 0727 . Skin Complaint HPI - HPI Summary HPI Summary: This pt is a 52 y/o male presenting to [facility] c/o abscess on right side of the neck x2 days. Pt reports that his abscess began as a pimple 2 days ago and has increased in size since then. He notes he squeezed a lot out of his abscess yesterday. Pt has been using warm compresses with mild relief. He currently rates his pain 6/10 in severity. He additionally notes "headache" described as pressure on the right side of his neck putting pressure on the right side of his head. Denies fever, chills, diaphoresis, SOB, chest pain, cough, nausea, vomiting, abdominal pain or confusion. PMHx includes borderline diabetes, GERD, and depression. Pt is a current smoker. NKDA. - History of Current Complaint Chief Complaint: UCSkin Time Seen by Provider: 11/13/17 07:21 Stated Complaint: SOFT TISSUE Hx Obtained From: Patient Onset/Duration: Lasting Days, Still Present, Worse Since - progressively Skin Exposure Onset/Duration: Days Ago Timing: Constant Current Severity: Severe Pain Intensity: 6 Pain Scale Used: 0-10 Numeric Aggravating Factor(s): Nothing Alleviating Factor(s): Other - warm compresses - Allergy/Home Medications Allergies/Adverse Reactions: Allergies Allergy/AdvReac Type Severity Reaction Status Date / Time No Known Allergies Allergy Verified 11/13/17 07:19 Home Medications: Home Medications Citalopram TAB* [CeleXA TAB*] mg PO DAILY 11/13/17 [History] Omeprazole CAP* [Prilosec CAP* 20 MG] mg PO DAILY 11/13/17 [History] glipiZIDE TAB* [Glucotrol TAB*] mg PO DAILY 11/13/17 [History] Review of Systems Constitutional: Negative Skin: Other - abscess on right side of neck Eyes: Negative ENT: Negative Respiratory: Negative Cardiovascular: Negative Gastrointestinal: Negative Genitourinary: Negative Motor: Negative Neurovascular: Negative Musculoskeletal: Negative Neurological: Headache Psychological: Negative All Other Systems Reviewed And Are Negative: Yes PMH/Surg Hx/FS Hx/Imm Hx Endocrine History: Diabetes Other Cardiovascular History: DENIES: HTN GI/ History: Gastroesophageal Reflux Psychological History: Depression - Surgical History Surgical History: Yes Surgery Procedure, Year, and Place: knee replacement - Family History Known Family History: Positive: Hypertension - Mother, Other - Father: sleep apnea, COPD Negative: Cardiac Disease - Social History Occupation: Employed Full-time Lives: With Family Alcohol Use: Rare Substance Use Type: None Smoking Status (MU): Heavy Every Day Tobacco Smoker Household Exposure Type: Cigarettes Cessation Counseling: Patient Advised to Stop Physical Exam Triage Information Reviewed: Yes Appearance: Well-Appearing, No Pain Distress, Well-Nourished Vital Signs: Initial Vital Signs Temp 98.8 F 11/13/17 07:20 Pulse 110 11/13/17 07:20 Resp 18 11/13/17 07:20 BP 153/94 11/13/17 07:20 Pulse Ox 97 11/13/17 07:20 Vital Signs Reviewed: Yes Eyes: Positive: Conjunctiva Clear. Negative: Discharge ENT: Positive: Hearing grossly normal. Negative: Muffled voice, Hoarse voice Neck exam: Normal Neck: Positive: Supple, Other: - see skin exam Respiratory: Positive: Lungs clear, Normal breath sounds, No respiratory distress, No accessory muscle use Cardiovascular: Positive: RRR, No Murmur Musculoskeletal Exam: Normal Neurological: Positive: Alert, Muscle Tone Normal Psychological Exam: Normal Psychological: Positive: Age Appropriate Behavior Skin: Positive: Other - there is a 10 x 7 cm swollen, red, tender, indurated lesion on the right side of the neck with pockets of fluctuance. Course/Dx - Course Course Of Treatment: In the [facility] course I did an I&D. I used 1% lidocaine on the right side of the neck and used a scalpel. There was copious amount of pus drained. Pt tolerated the procedure well. Patient will be discharged with prescription for Bactrim and follow up from PCP on Tuesday (11/15/17) as scheduled. Pt was given strict instructions to return to the ED. The patient is agreeable with this plan. Medications reviewed. Allergies reviewed. htn noted. likely d/t pt condition. Elevated blood pressure noted likely due to pt s condition. The pt has been encouraged to quit smoking. - Differential Diagnoses - Skin Complaint Differential Diagnoses: Abscess, Cellulitis, Other - inflamed cyst - Diagnoses Provider Diagnoses: abscess Procedures - Incision and Drainage Site: right side of neck Anesthesia: Lidocaine - 1% Instrument(s): Scalpel Packing: Gauze, Other - There was copious amount of pus drained. Discharge - Discharge Plan Condition: Stable Disposition: HOME Prescriptions: Sulfamethox/Trimethoprim DS* [Bactrim DS 800/160 TAB*] 1 tab PO BID #20 tab Patient Education Materials: Abscess (ED) Forms: *Work Release Referrals: Marcia Thornton [Primary Care Provider] - 2 Days (THIS FOLLOW UP VISIT IS IMPORTANT. WE WANT TO KNOW THAT YOU ARE IMPROVING AFTER 2 DAYS OF TREATMENT. IF YOU CAN NOT GET IN TO YOUR PCP'S OFFICE, RETURN HERE FOR FOLLOW UP.) Additional Instructions: ANTIBIOTIC THERAPY: You have been given an antibiotic prescription. It's important that you take all the medication, unless instructed otherwise by your physician. Failure to complete the entire course can result in relapse of your condition. Common side effects of antibiotics include nausea, intestinal cramping, or diarrhea. Women may develop vaginal yeast infections, and babies can get yeast (thrush) in the mouth following the use of antibiotics. Contact your physician if you develop significant side effects from this medication. Allergy to this antibiotic can result in hives, wheezing, faintness, or itching. If symptoms of allergy occur, stop the medication and call the doctor. ANYTIME YOU TAKE AN ANTIBIOTIC, IT IS IMPORTANT TO REPLENISH THE BODY'S SUPPLY OF "GOOD BACTERIA." YOU CAN GET GOOD BACTERIA FROM HIGH QUALITY CULTURED FOODS SUCH LOCAL YOGURT, SOUR KRAUT, ELLIOT VAHID, NATURALLY FERMENTED PICKLES AND PROBIOTIC DRINKS. YOU CAN ALSO GET GOOD BACTERIA FROM A PROBIOTIC SUPPLEMENT. THIS FOLLOW UP VISIT IS IMPORTANT. WE WANT TO KNOW THAT YOU ARE IMPROVING AFTER 2 DAYS OF TREATMENT. IF YOU CAN NOT GET IN TO YOUR PCP'S OFFICE, RETURN HERE FOR FOLLOW UP. The documentation as recorded by the Bruno delatorre Angela accurately reflects the service I personally performed and the decisions made by me, Vernell Amor DO.
--- NOTE | 2017-11-15 22:53 | UC ---
- Progress Note Progress Note: Pt with 2+ Finegoldia Magna Pt on keflex Pt was to follow-up with PCP on 11/15/17 Please call pt for update - no change in management at this time Monik 11/15/2017 Course/Dx - Course Course Of Treatment: In the [facility] course I did an I&D. I used 1% lidocaine on the right side of the neck and used a scalpel. There was copious amount of pus drained. Pt tolerated the procedure well. Patient will be discharged with prescription for Bactrim and follow up from PCP on Tuesday (11/15/17) as scheduled. Pt was given strict instructions to return to the ED. The patient is agreeable with this plan. Medications reviewed. Allergies reviewed. htn noted. likely d/t pt condition. Elevated blood pressure noted likely due to pt s condition. The pt has been encouraged to quit smoking.
== END 2017-11-13 08:00 | disposition home or self-care (01) ==
LOC: UCEAST 07:10
DX: L02.11 Cutaneous abscess of neck (principal); Z72.0 Tobacco use
CPT/HCPCS: 87070; 87076; 87205; 87640; 87641; 99212; G0463